=== PATIENT | female | born 1995 | race African-American/Black ===

== ENCOUNTER 2016-10-20 19:16 | Emergency (ER) | payer OTHER ==
[~2016-10-20 19:16] MED LIST: SULF1TAB24 PO
[2016-10-20] MEDS ORDERED: ONDANSETRON ODT 4 MG TAB.RAPDIS PO ONE (20:30)
[2016-10-20] MEDS ORDERED: HYDROCODONE/APAP 5/325MG TABLET. PO ONE (20:30)
[2016-10-20 21:18] LABS: BILIRUBIN,URINE NEGATIVE (NEG); GLUCOSE,URINE NEGATIVE (NEG); NITRITE,URINE NEGATIVE (NEG); PH,URINE 6.5; PROTEIN,URINE NEGATIVE (NEG-TRACE); UROBILINOGEN,URINE 0.2 mg/dL (0.2 mg/dL)
[2016-10-20 21:28] LABS: BACTERIA,URINE FEW /HPF (0-FEW); RBC,URINE 0 /HPF (0-2); SQUAMOUS EPITHELIAL CELL,UR MANY /LPF; WBC,URINE OCC /HPF (0-4)
[2016-10-20 21:33] LABS: BASO # 0.1 x10^3/uL (0.0-0.2); BASO % 1 % (0-3); EOS % 1 % (0-3); HEMATOCRIT 41.5 % (36.0-47.0); HEMOGLOBIN 13.5 g/dL (12.0-15.5); LYMPH # 2.9 x10^3/uL (1.0-4.8); LYMPH % 22 % (24-48); MEAN CORPUSCULAR HEMOGLOBIN 29 pg (25-35); MEAN CORPUSCULAR HGB CONC 33 g/dL (31-37); MEAN CORPUSCULAR VOLUME 90 fL (79-100); MONO % 5 % (0-9); NEUT % 71 % (31-73); PLATELET COUNT 322 x10^3/uL (140-400); RED BLOOD COUNT 4.63 x10^6/uL (3.50-5.40); RED CELL DISTRIBUTION WIDTH 14.3 % (11.5-14.5); WHITE BLOOD COUNT 13.2 x10^3/uL (4.0-11.0)
[2016-10-20 21:56] LABS: ANION GAP 8 (6-14); BLOOD UREA NITROGEN 11 mg/dL (7-20); CALCIUM 9.5 mg/dL (8.5-10.1); CARBON DIOXIDE 28 mmol/L (21-32); CHLORIDE 104 mmol/L (98-107); CREATININE 0.7 mg/dL (0.6-1.0); GFR 127.8; GLUCOSE 90 mg/dL (70-99); POTASSIUM 4.2 mmol/L (3.5-5.1); SODIUM 140 mmol/L (136-145)
[2016-10-20 22:01] LABS: ALBUMIN 3.9 g/dL (3.4-5.0); ALK PHOS 62 U/L (46-116); ALT (SGPT) 22 U/L (14-59); AST (SGOT) 18 U/L (15-37); DIRECT BILIRUBIN < 0.1 mg/dL (0.0-0.2); TOTAL BILIRUBIN 0.2 mg/dL (0.2-1.0); TOTAL PROTEIN 7.5 g/dL (6.4-8.2)
[2016-10-20] MEDS ORDERED: ONDA4TAB10 SL (22:06)
[2016-10-20] MEDS ORDERED: DOXY1TAB3 PO (22:06)
[2016-10-20] MEDS ORDERED: ACET325T9 PO (22:06)
--- NOTE | 2016-10-20 22:06 | PHYS DOC ---
Past Medical History Past Medical History: No Pertinent History Additional Past Medical Histor: "digestive system problems" Past Surgical History: No Surgical History Alcohol Use: None Drug Use: None Adult General Chief Complaint Chief Complaint: NAUSEA/VOMITING/DIARRHA HPI HPI 21-year-old female presenting to the emergency department today with lower abdominal pain nausea and vomiting for the last 3 days. She also has nonproductive cough. She denies having a fever. Her pain is mild intermittent nonradiating and not associated with vaginal bleeding or fever. Review of systems is negative for chest pain fevers chills neck stiffness or confusion. She denies any new rashes. Positive for nausea and vomiting. All other review of systems is negative unless otherwise noted in history of present illness. Review of Systems Review of Systems SEE ABOVE. Current Medications Current Medications Current Medications Medications (Trade) Dose Ordered Sig/Florian Start Time Stop Time Status Last Admin Dose Admin Acetaminophen/ Hydrocodone Bitart (Lortab 5/325) 2 tab 1X ONCE 10/20/16 20:30 10/20/16 20:39 DC 10/20/16 21:30 2 TAB Ondansetron HCl (Zofran Odt) 4 mg 1X ONCE 10/20/16 20:30 10/20/16 20:39 DC 10/20/16 21:29 4 MG Allergies Allergies Allergies Coded Allergies Type Severity Reaction Last Updated Verified No Known Drug Allergies 08/09/16 No Physical Exam Physical Exam Constitutional: Well developed, well nourished, no acute distress, non-toxic appearance. HENT: Normocephalic, atraumatic, bilateral external ears normal, oropharynx moist, no oral exudates, nose normal. [] Eyes: PERRLA, EOMI, conjunctiva normal, no discharge. Neck: Normal range of motion, no tenderness, supple, no stridor. [] Cardiovascular:Heart rate regular rhythm, no murmur Lungs & Thorax: Bilateral breath sounds clear to auscultation [] Abdomen: Soft nontender abdomen without rebound tenderness or guarding present. Negative McBurneys point. Negative Sears sign. No ecchymosis present. Skin: Warm, dry, no erythema, no rash. [] Back: No tenderness, no CVA tenderness. Extremities: No tenderness, no cyanosis, no clubbing, ROM intact, no edema. Neurologic: Alert and oriented X 3, normal motor function, normal sensory function, no focal deficits noted. [] Psychologic: Affect normal, judgement normal, mood normal. [] Current Patient Data Vital Signs Vital Signs Date Time Temp Pulse Resp B/P Pulse Ox O2 Delivery O2 Flow Rate FiO2 10/20/16 22:07 83 20 132/63 97 Room Air 10/20/16 20:05 98.2 98.2 Lab Values Laboratory Tests Test 10/20/16 20:10 10/20/16 20:15 10/20/16 20:30 Urine Collection Type Unknown Urine Color Yellow Urine Clarity Cloudy Urine pH 6.5 Urine Specific [place] 1.025 Urine Protein Negativemg/dL (NEG-TRACE) Urine Glucose (UA) Negativemg/dL (NEG) Urine Ketones (Stick) Tracemg/dL (NEG) Urine Blood Negative (NEG) Urine Nitrite Negative (NEG) Urine Bilirubin Negative (NEG) Urine Urobilinogen Dipstick 0.2mg/dL (0.2 mg/dL) Urine Leukocyte Esterase Negative (NEG) Urine RBC 0/HPF (0-2) Urine WBC Occ/HPF (0-4) Urine Squamous Epithelial Cells Many/LPF Urine Bacteria Few/HPF (0-FEW) Urine Mucus Marked/LPF White Blood Count 13.2x10^3/uL (4.0-11.0) H Red Blood Count 4.63x10^6/uL (3.50-5.40) Hemoglobin 13.5g/dL (12.0-15.5) Hematocrit 41.5% (36.0-47.0) Mean Corpuscular Volume 90fL (79-100) Mean Corpuscular Hemoglobin 29pg (25-35) Mean Corpuscular Hemoglobin Concent 33g/dL (31-37) Red Cell Distribution Width 14.3% (11.5-14.5) Platelet Count 322x10^3/uL (140-400) Neutrophils (%) (Auto) 71% (31-73) Lymphocytes (%) (Auto) 22% (24-48) L Monocytes (%) (Auto) 5% (0-9) Eosinophils (%) (Auto) 1% (0-3) Basophils (%) (Auto) 1% (0-3) Neutrophils # (Auto) 9.4x10^3uL (1.8-7.7) H Lymphocytes # (Auto) 2.9x10^3/uL (1.0-4.8) Monocytes # (Auto) 0.7x10^3/uL (0.0-1.1) Eosinophils # (Auto) 0.2x10^3/uL (0.0-0.7) Basophils # (Auto) 0.1x10^3/uL (0.0-0.2) Sodium Level 140mmol/L (136-145) Potassium Level 4.2mmol/L (3.5-5.1) Chloride Level 104mmol/L (98-107) Carbon Dioxide Level 28mmol/L (21-32) Anion Gap 8 (6-14) Blood Urea Nitrogen 11mg/dL (7-20) Creatinine 0.7mg/dL (0.6-1.0) Estimated GFR (Cockcroft-Gault) 127.8 Glucose Level 90mg/dL (70-99) Calcium Level 9.5mg/dL (8.5-10.1) Total Bilirubin 0.2mg/dL (0.2-1.0) Direct Bilirubin < 0.1mg/dL (0.0-0.2) Aspartate Amino Transferase (AST) 18U/L (15-37) Alanine Aminotransferase (ALT) 22U/L (14-59) Alkaline Phosphatase 62U/L (46-116) Total Protein 7.5g/dL (6.4-8.2) Albumin 3.9g/dL (3.4-5.0) Lipase 150U/L (73-393) POC Urine HCG, Qualitative Hcg positive (Negative) Laboratory Tests 10/20/16 20:15 Laboratory Tests 10/20/16 20:15 EKG EKG [] Radiology/Procedures Radiology/Procedures [] Course & Med Decision Making Course & Med Decision Making Pertinent Labs and Imaging studies reviewed. (See chart for details) [] 21-year-old female presenting to the emergency department today with lower abdominal pain found be on our urine dipstick. Vital signs afebrile. Normal heart rate. Satting well on room air. Physical exam showed a nontender abdomen. Blood work obtained which showed mild leukocytosis. Urinalysis not suggestive of infection. Few bacteria present. Chemistry panel otherwise unremarkable. Ultrasound showed intrauterine . Dragon Disclaimer Dragon Disclaimer This electronic medical record was generated, in whole or in part, using a voice recognition dictation system. Departure Departure Impression: Primary Impression: Abdominal pain affecting Additional Impression: Abdominal pain during Disposition: 01 HOME, SELF-CARE Condition: STABLE Referrals: CLAUDINE SMITH MD (PCP) DEEPTHI HAMPTON Jr, MD Patient Instructions: Abdominal Pain During Additional Instructions: Thank you for allowing us to participate in your care today. Followup with your OB, Dr. Hampton. If you do not have a primary care provider you can ask for a list of our primary care providers. Return to the emergency department you have any new or concerning findings. This should be evaluated by the primary care physician and any necessary consulting services for continued management within a few days after discharge. Return to emergency room if you have any new or concerning symptoms including but not limited to fever, chills, nausea, vomiting, intractable pain, any new rashes, chest pain, shortness of air, uncontrolled bleeding, difficulty breathing, and/or vision loss. Scripts Cephalexin (Keflex)500 Mg Capsule1 Cap PO BID #14 CAP Prov:KAMRAN MCLAIN MD 10/20/16 Doxylamine/Pyridoxine Hcl (Diclegis Dr 10-10 Mg Tablet)1 Each Tablet.dr1 Each PO PRN BID PRN NAUSEA #10 Prov:KAMRAN MCLAIN MD 10/20/16 Ondansetron (Zofran Odt)4 Mg Tab.rapdis1 Tab SL PRN Q8HRS PRN NAUSEA #6 TAB Prov:KAMRAN MCLAIN MD 10/20/16 Acetaminophen (Tylenol)325 Mg [id number] Mg PO PRN Q8HRS PRN PAIN #20 Prov:KAMRAN MCLAIN MD 10/20/16 Problem Qualifiers KAMRAN MCLAIN MD Oct 20, 2016 22:07
--- NOTE | 2016-10-20 22:11 | RAD ---
PROCEDURE First trimester OB ultrasound with endovaginal imaging. HISTORY Nausea, vomiting, diarrhea and dizziness for 1 day. TECHNIQUE Transabdominal imaging was performed for initial evaluation of the pelvis. Endovaginal imaging was performed for optimal characterization of the endometrium and to increase sensitivity for detection of intrauterine . COMPARISON None. FINDINGS Transabdominal imaging: Uterus measures 7.0 centimeters in length. Questionable gestational sac is seen the endometrium. Neither ovary is seen. Endovaginal imaging: Uterus measures 7.5 centimeters in length. Single intrauterine is identified with gestational sac, yolk sac, and embryonic pole seen. Mean crown-rump length is 2.9 millimeters corresponding to 5 weeks 6 days. Estimated date of delivery based on this measurement is June 16, 2017. Embryonic heart motion is 97 beats per minute. Left ovary measures 2.0 x 1.2 x 1.6 centimeters and demonstrates corpus luteum cyst. Right ovary measures 1.9 x 2.4 x 1.1 centimeters and is unremarkable. Both ovaries demonstrate normal vascular flow upon Doppler interrogation and are without evidence of torsion. No adnexal masses are seen. IMPRESSION Single live intrauterine . Average ultrasound age is 5 weeks 6 days. Estimated date of delivery is June 16, 2017. Electronically signed by: Duncan Puga MD (Oct 20, 2016 22:10:34)
[2016-10-20] MEDS ORDERED: CEPH-264 PO (22:48)
[2016-10-20 23:07] VITALS: BP 115/61
== END 2016-10-20 23:30 | disposition home or self-care (01) ==
LOC: ER 19:16
DX: O26.891 Other specified pregnancy related conditions, first trimester (principal); R10.30 Lower abdominal pain, unspecified; Z3A.00 Weeks of gestation of pregnancy not specified
CPT/HCPCS: 36415; 76801; 76817; 80048; 80076; 81001; 81025; 83690; 84702; 85027; 86850; 86900; 86901; 99285; Q0162

== ENCOUNTER 2016-10-30 16:20 | Emergency (ER) | payer OTHER ==
[~2016-10-30] VITALS: Ht 154.9 cm; Wt 71.7 kg
[~2016-10-30 16:20] MED LIST changes: +ACET325T9 PO; +CEPH-264 PO; +DOXY1TAB3 PO; +ONDA4TAB10 SL
[2016-10-30] MEDS ORDERED: IV NORMAL SALINE 1000ML BAG 1,000 ML IV SCH (16:40)
[2016-10-30] MEDS ORDERED: ACETAMINOPHEN 500 MG TABLET PO ONE (16:45)
[2016-10-30] MEDS ORDERED: METOCLOPRAMIDE HCL 10 MG/2 ML VIAL. IV ONE (16:45)
[2016-10-30 16:49] LABS: BILIRUBIN,URINE NEGATIVE (NEG); GLUCOSE,URINE NEGATIVE (NEG); NITRITE,URINE NEGATIVE (NEG); PROTEIN,URINE NEGATIVE (NEG-TRACE)
[2016-10-30 16:50] VITALS: BP 131/74
--- NOTE | 2016-10-30 16:50 | PHYS DOC ---
Past Medical History Past Medical History: No Pertinent History Additional Past Medical Histor: "digestive system problems" Past Surgical History: No Surgical History Alcohol Use: None Drug Use: None Adult General Chief Complaint Chief Complaint: ABDOMINAL PAIN IN HPI HPI Patient is a 21 year old female who presents with abdominal pain in the setting of . Patient reports that since midnight she has been having sharp, pressure-like pain in her lower abdomen. No clear inciting event. Pain is worse with walking. She says it is accompanied by nausea and vomiting; last emesis was ~0200. She has not taken anything for symptoms. No vaginal bleeding; she did have some discharge a few days ago. She is ; she states she is 7w2d . Review of Systems Review of Systems Constitutional: Denies fever or chills Eyes: Denies change in visual acuity or eye pain HENT: Denies nasal congestion or sore throat Respiratory: Denies cough or shortness of breath Cardiovascular: Denies chest pain GI: Lower abdominal pain, nausea, vomiting. Denies bloody stools or diarrhea : Vaginal discharge a few days ago. Denies vaginal bleeding. Denies dysuria or hematuria Musculoskeletal: Denies back pain or joint pain Integument: Denies rash or skin lesions Neurologic: Denies headache, focal weakness or sensory changes Current Medications Current Medications Current Medications Medications (Trade) Dose Ordered Sig/Florian Start Time Stop Time Status Last Admin Dose Admin Acetaminophen (Tylenol) 1,000 mg 1X ONCE 10/30/16 16:45 10/30/16 16:46 DC 10/30/16 17:13 1,000 MG Metoclopramide HCl (Reglan) 10 mg 1X ONCE 10/30/16 16:45 10/30/16 16:46 DC 10/30/16 17:13 10 MG Sodium Chloride (Iv Sodium Chloride 0.9% 1000ml Bag) 1,000 ml @ 1,000 mls/hr Q1H 10/30/16 16:40 10/30/16 17:39 DC 10/30/16 17:12 1,000 MLS/HR Allergies Allergies Allergies Coded Allergies Type Severity Reaction Last Updated Verified No Known Drug Allergies 08/09/16 No Physical Exam Physical Exam Constitutional: Well developed, well nourished, no acute distress, non-toxic appearance HENT: Normocephalic, atraumatic, bilateral external ears normal Eyes: EOMI, conjunctiva normal, no discharge Neck: Normal range of motion, no stridor Cardiovascular: Tachycardic, regular rhythm, murmur noted Lungs & Thorax: Bilateral breath sounds clear to auscultation Abdomen: Bowel sounds normal, soft, non-distended, no TTP Pelvic: Scant thick white discharge in vault, no bleeding, no focal CMT or adnexal tenderness Skin: Warm, dry, no erythema, no rash Extremities: No obvious deformity, no edema Neurologic: Alert and oriented X 3, no gross deficits noted Current Patient Data Vital Signs Vital Signs Date Time Temp Pulse Resp B/P Pulse Ox O2 Delivery O2 Flow Rate FiO2 10/30/16 16:50 98.7 103 27 131/74 99 Room Air 98.7 Lab Values Laboratory Tests Test 10/30/16 16:29 10/30/16 16:34 10/30/16 16:46 Urine Collection Type Unknown Urine Color Yellow Urine Clarity Clear Urine pH 7.0 Urine Specific [place] >=1.030 Urine Protein Negativemg/dL (NEG-TRACE) Urine Glucose (UA) Negativemg/dL (NEG) Urine Ketones (Stick) Tracemg/dL (NEG) Urine Blood Trace (NEG) Urine Nitrite Negative (NEG) Urine Bilirubin Negative (NEG) Urine Urobilinogen Dipstick 1.0mg/dL (0.2 mg/dL) Urine Leukocyte Esterase Small (NEG) Urine RBC 3-5/HPF (0-2) Urine WBC 5-10/HPF (0-4) Urine Squamous Epithelial Cells Many/LPF Urine Bacteria Few/HPF (0-FEW) Urine Mucus Marked/LPF POC Urine HCG, Qualitative Hcg positive (Negative) White Blood Count 10.8x10^3/uL (4.0-11.0) Red Blood Count 4.61x10^6/uL (3.50-5.40) Hemoglobin 13.5g/dL (12.0-15.5) Hematocrit 41.0% (36.0-47.0) Mean Corpuscular Volume 89fL (79-100) Mean Corpuscular Hemoglobin 29pg (25-35) Mean Corpuscular Hemoglobin Concent 33g/dL (31-37) Red Cell Distribution Width 14.3% (11.5-14.5) Platelet Count 239x10^3/uL (140-400) Neutrophils (%) (Auto) 71% (31-73) Lymphocytes (%) (Auto) 22% (24-48) L Monocytes (%) (Auto) 6% (0-9) Eosinophils (%) (Auto) 1% (0-3) Basophils (%) (Auto) 1% (0-3) Neutrophils # (Auto) 7.6x10^3uL (1.8-7.7) Lymphocytes # (Auto) 2.3x10^3/uL (1.0-4.8) Monocytes # (Auto) 0.7x10^3/uL (0.0-1.1) Eosinophils # (Auto) 0.1x10^3/uL (0.0-0.7) Basophils # (Auto) 0.1x10^3/uL (0.0-0.2) Maternal Serum HCG Beta Subunit 111752aCO/mL (0-6) H Sodium Level 140mmol/L (136-145) Potassium Level 4.3mmol/L (3.5-5.1) Chloride Level 103mmol/L (98-107) Carbon Dioxide Level 27mmol/L (21-32) Anion Gap 10 (6-14) Blood Urea Nitrogen 10mg/dL (7-20) Creatinine 0.7mg/dL (0.6-1.0) Estimated GFR (Cockcroft-Gault) 127.8 BUN/Creatinine Ratio 14 (6-20) Glucose Level 88mg/dL (70-99) Calcium Level 9.4mg/dL (8.5-10.1) Total Bilirubin 0.3mg/dL (0.2-1.0) Aspartate Amino Transferase (AST) 15U/L (15-37) Alanine Aminotransferase (ALT) 18U/L (14-59) Alkaline Phosphatase 61U/L (46-116) Total Protein 7.4g/dL (6.4-8.2) Albumin 4.0g/dL (3.4-5.0) Albumin/Globulin Ratio 1.2 (1.0-1.7) Laboratory Tests 10/30/16 16:46 Laboratory Tests 10/30/16 16:46 Microbiology 10/30/16 Wet Prep - Final, Complete EKG EKG [] Radiology/Procedures Radiology/Procedures Pelvic US: IMPRESSION 1. Single live intrauterine at 7 weeks 2 days gestational age by LMP shows appropriate size by ultrasound and appropriate interval growth. 2. No suspicious findings. A short-term followup ultrasound should be performed if clinically indicated otherwise a structural survey would be performed at 18-21 weeks gestational age. Course & Med Decision Making Course & Med Decision Making Pertinent Labs and Imaging studies reviewed. (See chart for details) Patient is 21 year old female who presents with pelvic pain during early . Likely ligamentous pain. Will check pelvic swabs, labs, UA, pelvic US. Acetaminophen, IVF bolus, anti-emetic ordered for symptom relief. Blood work unremarkable. UA notable for bacteriuria. US results as above. Discussed results with patient, who is feeling better at this time. Will plan discharge home with rx for abx to cover asymptomatic bacteriuria, instructions for follow up, return precautions. Dragon Disclaimer Dragon Disclaimer This electronic medical record was generated, in whole or in part, using a voice recognition dictation system. Departure Departure Impression: Primary Impression: Abdominal pain during Additional Impression: Bacteriuria during Disposition: HOME, SELF-CARE Condition: IMPROVED Referrals: CLAUDINE SMITH MD (PCP) Patient Instructions: Abdominal Pain During Additional Instructions: Thank you for allowing us to provide care today in the Emergency Department. Take the provided medication as directed. Also continue to take your vitamins. Follow up with your ObGyn as soon as possible. Return promptly to the Emergency Department if you develop any new or concerning symptoms. Scripts Nitrofurantoin Monohyd/M-Cryst (Macrobid 100 Mg Capsule)100 Mg Capsule1 Cap PO BID #10 CAP Prov:TREY DAILEY MD 10/30/16 Problem Qualifiers TREY DAILEY MD Oct 30, 2016 16:50
[2016-10-30 16:54] LABS: BACTERIA,URINE FEW /HPF (0-FEW); SQUAMOUS EPITHELIAL CELL,UR MANY /LPF
[2016-10-30 16:57] LABS: BASO # 0.1 x10^3/uL (0.0-0.2); BASO % 1 % (0-3); EOS % 1 % (0-3); HEMOGLOBIN 13.5 g/dL (12.0-15.5); LYMPH # 2.3 x10^3/uL (1.0-4.8); LYMPH % 22 % (24-48); MEAN CORPUSCULAR HEMOGLOBIN 29 pg (25-35); MEAN CORPUSCULAR HGB CONC 33 g/dL (31-37); MEAN CORPUSCULAR VOLUME 89 fL (79-100); MONO % 6 % (0-9); NEUT % 71 % (31-73); PLATELET COUNT 239 x10^3/uL (140-400); RED BLOOD COUNT 4.61 x10^6/uL (3.50-5.40); RED CELL DISTRIBUTION WIDTH 14.3 % (11.5-14.5); WHITE BLOOD COUNT 10.8 x10^3/uL (4.0-11.0)
[2016-10-30 17:16] LABS: CALCIUM 9.4 mg/dL (8.5-10.1); CREATININE 0.7 mg/dL (0.6-1.0); GFR 127.8; POTASSIUM 4.3 mmol/L (3.5-5.1)
[2016-10-30 17:19] LABS: ALBUMIN/GLOBULIN RATIO 1.2 (1.0-1.7); TOTAL BILIRUBIN 0.3 mg/dL (0.2-1.0); TOTAL PROTEIN 7.4 g/dL (6.4-8.2)
--- NOTE | 2016-10-30 18:26 | RAD ---
PROCEDURE Ob ultrasound less than 14 weeks HISTORY and pelvic pain The LMP of 09/09/2016 corresponds with a 7 week 2 day gestational age and estimated date of confinement 06/16/2017 TECHNIQUE Sonographic examination of the was performed by transabdominal technique and multiple static images were obtained. COMPARISON October 20, 2016 FINDINGS There is a single live intrauterine . The heart beat is confirmed at 135 beats per minute. The maternal cervix appears normal measures 3.3 centimeters in length. The ovaries appear normal with normal blood flow. The crown-rump length of 1.1 centimeters corresponds with a 7 week 2 day gestational age. IMPRESSION 1. Single live intrauterine at 7 weeks 2 days gestational age by LMP shows appropriate size by ultrasound and appropriate interval growth. 2. No suspicious findings. A short-term followup ultrasound should be performed if clinically indicated otherwise a structural survey would be performed at 18-21 weeks gestational age. Electronically signed by: Evgeny Mancilla MD (Oct 30, 2016 18:24:52)
[2016-10-30] MEDS ORDERED: NITR100C62 PO (18:37)
== END 2016-10-30 18:40 | disposition home or self-care (01) ==
LOC: ER 16:20
DX: O23.41 Unspecified infection of urinary tract in pregnancy, first trimester (principal); O21.0 Mild hyperemesis gravidarum; Z3A.01 Less than 8 weeks gestation of pregnancy
CPT/HCPCS: 36415; 76801; 80053; 81001; 81025; 84702; 85027; 87086; 87491; 87591; 96361; 96374; 99285; J2765; J7030; Q0111

== ENCOUNTER 2016-11-05 15:43 | Emergency (ER) | payer OTHER ==
[~2016-11-05] VITALS: Ht 154.9 cm; Wt 63.5 kg
[~2016-11-05 15:43] MED LIST changes: +NITR100C62 PO
[2016-11-05 16:49] LABS: BILIRUBIN,URINE NEGATIVE (NEG); GLUCOSE,URINE NEGATIVE (NEG); NITRITE,URINE NEGATIVE (NEG); PROTEIN,URINE NEGATIVE (NEG-TRACE); UROBILINOGEN,URINE 0.2 mg/dL (0.2 mg/dL)
--- NOTE | 2016-11-05 16:50 | PHYS DOC ---
Past Medical History Past Medical History: Constipation Additional Past Medical Histor: "digestive system problems" Past Surgical History: No Surgical History Alcohol Use: None Drug Use: None Adult General Chief Complaint Chief Complaint: VOMITING IN [facility] HPI Patient is a 21 year old female presents with six episodes of vomiting today since she ran out of Zofran. reports she was seen here recently and diagnosed with a UTI and given two medications for vomiting and Zofran is the only one that works. Reports 8 weeks with LMP 09/09/15, A0. First OB appointment is Thursday. Denies fever, urinary symptoms, Back pain, vaginal bleeding or leaking of fluid. Review of Systems Review of Systems Constitutional: Denies fever or chills Eyes: Denies change in visual acuity, redness, or eye pain HENT: Denies nasal congestion or sore throat Respiratory: Denies cough or shortness of breath Cardiovascular: No additional information not addressed in HPI GI: Nausea and vomiting : Denies dysuria or hematuria Musculoskeletal: Denies back pain or joint pain Integument: Denies rash or skin lesions Neurologic: Denies headache, focal weakness or sensory changes Endocrine: Denies polyuria or polydipsia Allergies Allergies Allergies Coded Allergies Type Severity Reaction Last Updated Verified No Known Drug Allergies 08/09/16 No Physical Exam Physical Exam Constitutional: Well developed, well nourished, no acute distress, non-toxic appearance. HENT: Normocephalic, atraumatic, bilateral external ears normal, oropharynx moist, no oral exudates, nose normal. Eyes: PERRLA, EOMI, conjunctiva normal, no discharge. Neck: Normal range of motion, no tenderness, supple, no stridor. Cardiovascular:Heart rate regular rhythm, no murmur Lungs & Thorax: Bilateral breath sounds clear to auscultation Abdomen: Bowel sounds normal, soft, no tenderness, no masses, no pulsatile masses. Skin: Warm, dry, no erythema, no rash. Back: No tenderness, no CVA tenderness. Extremities: No tenderness, no cyanosis, no clubbing, ROM intact, no edema. Neurologic: Alert and oriented X 3, normal motor function, normal sensory function, no focal deficits noted. Psychologic: Affect normal, judgement normal, mood normal. Current Patient Data Vital Signs Vital Signs Date Time Temp Pulse Resp B/P Pulse Ox O2 Delivery O2 Flow Rate FiO2 11/05/16 17:20 79 16 112/58 99 Room Air 11/05/16 15:50 99.0 99.0 Lab Values Laboratory Tests Test 11/05/16 16:10 Urine Collection Type Unknown Urine Color Yellow Urine Clarity Clear Urine pH 7.0 Urine Specific [place] <=1.005 Urine Protein Negativemg/dL (NEG-TRACE) Urine Glucose (UA) Negativemg/dL (NEG) Urine Ketones (Stick) Negativemg/dL (NEG) Urine Blood Trace (NEG) Urine Nitrite Negative (NEG) Urine Bilirubin Negative (NEG) Urine Urobilinogen Dipstick 0.2mg/dL (0.2 mg/dL) Urine Leukocyte Esterase Negative (NEG) Urine RBC 3-5/HPF (0-2) Urine WBC Occ/HPF (0-4) Urine Squamous Epithelial Cells Mod/LPF Urine Bacteria 0/HPF (0-FEW) Urine Mucus Slight/LPF EKG EKG [] Radiology/Procedures Radiology/Procedures [] Impressions: Vomiting in Course & Med Decision Making Course & Med Decision Making Pertinent Labs and Imaging studies reviewed. (See chart for details) [] Dragon Disclaimer Dragon Disclaimer This electronic medical record was generated, in whole or in part, using a voice recognition dictation system. Departure Departure Impression: Primary Impression: Vomiting during Disposition: 01 HOME, SELF-CARE Condition: STABLE Referrals: CLAUDINE SMITH MD (PCP) Patient Instructions: Nausea and Vomiting, [id number] Additional Instructions: Finish the antibiotic as prescribed. Keep your appointment with your OB doctor for Thursday. Take all medications as prescribed. Return if problems or concerns. Scripts Ondansetron (Zofran Odt)4 Mg Tab.rapdis1 Tab SL Q8HRS #10 TAB Prov:SOBIA WALTON APRN 11/05/16 SOBIA WALTON APRN Nov 05, 2016 16:50
[2016-11-05 17:07] LABS: BACTERIA,URINE 0 /HPF (0-FEW); SQUAMOUS EPITHELIAL CELL,UR MOD /LPF; WBC,URINE OCC /HPF (0-4)
[2016-11-05] MEDS ORDERED: ONDA4TAB10 SL (17:12)
[2016-11-05 17:20] VITALS: BP 112/58
== END 2016-11-05 17:20 | disposition home or self-care (01) ==
LOC: ER 15:43
DX: O21.9 Vomiting of pregnancy, unspecified (principal); Z3A.08 8 weeks gestation of pregnancy; Z87.440 Personal history of urinary (tract) infections
CPT/HCPCS: 81001; 99283

== ENCOUNTER → 2016-12-02 | Outpatient (CLI) | payer OTHER ==
[2016-11-05 17:20] VITALS: BP 112/58
[2016-12-02 13:54] LABS: BASO % 0 % (0-3); EOS % 1 % (0-3); HEMATOCRIT 41.8 % (36.0-47.0); HEMOGLOBIN 13.7 g/dL (12.0-15.5); LYMPH % 20 % (24-48); MEAN CORPUSCULAR HEMOGLOBIN 29 pg (25-35); MEAN CORPUSCULAR HGB CONC 33 g/dL (31-37); MEAN CORPUSCULAR VOLUME 88 fL (79-100); MONO % 5 % (0-9); NEUT % 73 % (31-73); PLATELET COUNT 250 x10^3/uL (140-400); RED BLOOD COUNT 4.73 x10^6/uL (3.50-5.40); WHITE BLOOD COUNT 9.6 x10^3/uL (4.0-11.0)
[2016-12-02 15:59] LABS: SICKLE CELL SCREEN NEGATIVE
== END | disposition home or self-care (01) ==
LOC: LAB 13:34
PROVIDERS: ATTEND Obstetrics & Gynecology
DX: Z32.01 Encounter for pregnancy test, result positive (principal)
CPT/HCPCS: 36415; 85027; 85660; 86593; 86703; 86762; 86850; 86900; 86901; 87340; 87341

== ENCOUNTER 2016-12-04 17:46 | Emergency (ER) | payer OTHER ==
[2016-12-04 17:55] VITALS: BP 125/64
--- NOTE | 2016-12-04 19:05 | PHYS DOC ---
Past Medical History Past Medical History: Constipation Additional Past Medical Histor: "digestive system problems" Past Surgical History: No Surgical History Alcohol Use: None Drug Use: None Adult General Chief Complaint Chief Complaint: VAGINAL BLEEDING HPI HPI Patient is a 21 year old female who presents with vaginal bleeding during . Patient is 12 weeks 2 days . 1, Para 0. Patient states she passed a small blood clot around 4 PM today. Patient denies any abdominal pain or abdominal/uterine cramping. Unknown blood type. No pain with urination, urinary frequency or constipation. No prior abdominal surgeries or abdominal trauma. Review of Systems Review of Systems Constitutional: Denies fever or chills Eyes: Denies change in visual acuity, redness, or eye pain HENT: Denies nasal congestion or sore throat Respiratory: Denies cough or shortness of breath Cardiovascular: No chest pain or palpitations GI: Denies abdominal pain, nausea, vomiting, bloody stools or diarrhea : Denies dysuria or hematuria Musculoskeletal: Denies back pain or joint pain Integument: Denies rash or skin lesions Neurologic: Denies headache, focal weakness or sensory changes Endocrine: Denies polyuria or polydipsia Allergies Allergies Allergies Coded Allergies Type Severity Reaction Last Updated Verified No Known Drug Allergies 08/09/16 No Physical Exam Physical Exam Constitutional: Well developed, well nourished, no acute distress, non-toxic appearance. HENT: Normocephalic, atraumatic, oropharynx moist, no oral exudates. Eyes: PERRLA, EOMI, conjunctiva normal, no discharge. Neck: Normal range of motion, no tenderness, supple, no stridor. Cardiovascular:Heart rate regular rhythm, no murmur Lungs & Thorax: Bilateral breath sounds clear to auscultation Abdomen: Bowel sounds normal, soft, no tenderness, no masses, no pulsatile masses. Skin: Warm, dry, no erythema, no rash. Back: No tenderness, no CVA tenderness. Extremities: No tenderness, no cyanosis, no edema. Neurologic: Alert and oriented X 3, normal motor function, normal sensory function, no focal deficits noted. Psychologic: Affect normal, judgement normal, mood normal. Current Patient Data Vital Signs Vital Signs Date Time Temp Pulse Resp B/P Pulse Ox O2 Delivery O2 Flow Rate FiO2 12/04/16 17:55 99.5 69 14 125/64 100 Room Air 99.5 EKG EKG [] Radiology/Procedures Radiology/Procedures [] Course & Med Decision Making Course & Med Decision Making Pertinent Labs and Imaging studies reviewed. (See chart for details) I discussed treatment plan with patient including pelvic exam and quantitative hCG with repeat hCG in 3 days. Once patient understood and would be no emergent ultrasound of this she signed out AMA. Aide Disclaimer Dragon Disclaimer This electronic medical record was generated, in whole or in part, using a voice recognition dictation system. Departure Departure Impression: Primary Impression: Threatened miscarriage Disposition: 07 AGAINST MEDICAL ADVICE Condition: STABLE Referrals: NO PCP (PCP) FAUSTINO VILCHIS MD Dec 04, 2016 19:05
== END 2016-12-04 19:33 | disposition left against medical advice (07) ==
LOC: ER 17:46
DX: O20.0 Threatened abortion (principal); Z3A.12 12 weeks gestation of pregnancy
CPT/HCPCS: 36415; 99281

== ENCOUNTER 2016-12-09 20:37 | Inpatient (IN) | payer OTHER ==
[~2016-12-09] VITALS: Ht 154.9 cm; Wt 70.8 kg
[2016-12-09 21:38] LABS: BASO # 0.1 x10^3/uL (0.0-0.2); BASO % 0 % (0-3); EOS % 1 % (0-3); HEMATOCRIT 39.5 % (36.0-47.0); HEMOGLOBIN 12.9 g/dL (12.0-15.5); LYMPH # 1.9 x10^3/uL (1.0-4.8); LYMPH % 16 % (24-48); MEAN CORPUSCULAR HEMOGLOBIN 29 pg (25-35); MEAN CORPUSCULAR HGB CONC 33 g/dL (31-37); MEAN CORPUSCULAR VOLUME 89 fL (79-100); MONO % 4 % (0-9); NEUT % 78 % (31-73); PLATELET COUNT 217 x10^3/uL (140-400); RED BLOOD COUNT 4.44 x10^6/uL (3.50-5.40); WHITE BLOOD COUNT 12.4 x10^3/uL (4.0-11.0)
--- NOTE | 2016-12-09 21:44 | PHYS DOC ---
Past Medical History Past Medical History: Constipation Additional Past Medical Histor: "digestive system problems" Past Surgical History: No Surgical History Alcohol Use: None Drug Use: None Adult General Chief Complaint Chief Complaint: VAGINAL BLEEDING HPI HPI This is an otherwise healthy 29-year-old female who's actively miscarrying and she was told last week at [facility] that she was having an inevitable miscarriage. She now states she is passing large clots or as before she was spotting. She is also having significant lower abdominal cramping that is new today. She denies any fever or chills. This is her first . She has not yet seen an OB doctor and she states she's had difficulty getting a appointment. She does not appear to be in any acute distress upon my initial evaluation. She denies any dizziness or lightheadedness. Review of Systems Review of Systems Constitutional: Denies fever or chills [] Eyes: Denies change in visual acuity, redness, or eye pain [] HENT: Denies nasal congestion or sore throat [] Respiratory: Denies cough or shortness of breath [] Cardiovascular: No additional information not addressed in HPI [] GI: Denies abdominal pain, nausea, vomiting, bloody stools or diarrhea [] : Denies dysuria or hematuria [] Musculoskeletal: Denies back pain or joint pain [] Integument: Denies rash or skin lesions [] Neurologic: Denies headache, focal weakness or sensory changes [] Endocrine: Denies polyuria or polydipsia [] Current Medications Current Medications Current Medications Medications (Trade) Dose Ordered Sig/Florian Start Time Stop Time Status Last Admin Dose Admin Fentanyl Citrate (Fentanyl 2ml Vial) 50 mcg PRN Q2HR PRN 12/09/16 23:00 12/10/16 22:59 Ondansetron HCl (Zofran) 4 mg PRN Q8HRS PRN 12/09/16 23:00 12/10/16 22:59 Sodium Chloride (Iv Sodium Chloride 0.9% 1000ml Bag) 1,000 ml @ 1,000 mls/hr 1X ONCE 12/09/16 22:00 12/09/16 23:02 DC 12/09/16 22:26 1,000 MLS/HR Allergies Allergies Allergies Coded Allergies Type Severity Reaction Last Updated Verified No Known Drug Allergies 08/09/16 No Physical Exam Physical Exam Constitutional: Well developed, well nourished, no acute distress, non-toxic appearance. [] HENT: Normocephalic, atraumatic, bilateral external ears normal, oropharynx moist, no oral exudates, nose normal. [] Eyes: PERRLA, EOMI, conjunctiva normal, no discharge. [] Neck: Normal range of motion, no tenderness, supple, no stridor. [] Cardiovascular:Heart rate regular rhythm, no murmur [] Lungs & Thorax: Bilateral breath sounds clear to auscultation [] Abdomen: Bowel sounds normal, soft, no tenderness, no masses, no pulsatile masses. [] Skin: Warm, dry, no erythema, no rash. [] Back: No tenderness, no CVA tenderness. [] Extremities: No tenderness, no cyanosis, no clubbing, ROM intact, no edema. [] Neurologic: Alert and oriented X 3, normal motor function, normal sensory function, no focal deficits noted. [] Psychologic: Affect normal, judgement normal, mood normal. [] Current Patient Data Vital Signs Vital Signs Date Time Temp Pulse Resp B/P Pulse Ox O2 Delivery O2 Flow Rate FiO2 12/09/16 23:02 16 125/74 100 Room Air 12/09/16 22:34 71 12/09/16 20:40 99 99.0 Lab Values Laboratory Tests Test 12/09/16 21:30 White Blood Count 12.4x10^3/uL (4.0-11.0) H Red Blood Count 4.44x10^6/uL (3.50-5.40) Hemoglobin 12.9g/dL (12.0-15.5) Hematocrit 39.5% (36.0-47.0) Mean Corpuscular Volume 89fL (79-100) Mean Corpuscular Hemoglobin 29pg (25-35) Mean Corpuscular Hemoglobin Concent 33g/dL (31-37) Red Cell Distribution Width 14.0% (11.5-14.5) Platelet Count 217x10^3/uL (140-400) Neutrophils (%) (Auto) 78% (31-73) H Lymphocytes (%) (Auto) 16% (24-48) L Monocytes (%) (Auto) 4% (0-9) Eosinophils (%) (Auto) 1% (0-3) Basophils (%) (Auto) 0% (0-3) Neutrophils # (Auto) 9.7x10^3uL (1.8-7.7) H Lymphocytes # (Auto) 1.9x10^3/uL (1.0-4.8) Monocytes # (Auto) 0.5x10^3/uL (0.0-1.1) Eosinophils # (Auto) 0.1x10^3/uL (0.0-0.7) Basophils # (Auto) 0.1x10^3/uL (0.0-0.2) Maternal Serum HCG Beta Subunit 573mIU/mL (0-6) H Sodium Level 142mmol/L (136-145) Potassium Level 3.8mmol/L (3.5-5.1) Chloride Level 105mmol/L (98-107) Carbon Dioxide Level 28mmol/L (21-32) Anion Gap 9 (6-14) Blood Urea Nitrogen 14mg/dL (7-20) Creatinine 0.7mg/dL (0.6-1.0) Estimated GFR (Cockcroft-Gault) 127.8 BUN/Creatinine Ratio 20 (6-20) Glucose Level 85mg/dL (70-99) Calcium Level 9.5mg/dL (8.5-10.1) Total Bilirubin 0.2mg/dL (0.2-1.0) Aspartate Amino Transferase (AST) 14U/L (15-37) L Alanine Aminotransferase (ALT) 18U/L (14-59) Alkaline Phosphatase 62U/L (46-116) Total Protein 7.5g/dL (6.4-8.2) Albumin 3.7g/dL (3.4-5.0) Albumin/Globulin Ratio 1.0 (1.0-1.7) Laboratory Tests 12/09/16 21:30 Laboratory Tests 12/09/16 21:30 EKG EKG [] Radiology/Procedures Radiology/Procedures PROCEDURE Transvaginal Ob ultrasound less than 14 weeks 12/09/2016 HISTORY First trimester . The patient started having a miscarriage last week. Sudden onset of heavy vaginal bleeding 1 hour ago. TECHNIQUE A transvaginal ultrasound study was performed. Multiple images were obtained. FINDINGS The uterus is mildly enlarged measuring 11.0 x 5.2 x 4.2 centimeters in longitudinal, transverse, and AP dimensions. No gestational sac is seen within the endometrial canal of the uterus. The endometrial echo complex measures 1.7 centimeters in thickness which is within normal limits. It is heterogeneous. No focal abnormality of the uterus is seen. Both ovaries are within normal limits in size and echogenicity. The right ovary measures 1.8 x 1.0 x 1.3 centimeters in size. The left ovary measures 2.6 x 1.3 x 1.2 centimeters in size. No adnexal mass is seen. No free fluid is noted. IMPRESSION No IUP is seen. These findings likely reflect a missed spontaneous given the patient's history. Course & Med Decision Making Course & Med Decision Making Pertinent Labs and Imaging studies reviewed. (See chart for details) This 21-year-old female who is having ongoing vaginal bleeding has an ultrasound that is concerning for missed . She has extensive blood in the endocervical canal and has required multiple doses of pain control in the department. Her laboratory workup was unrevealing. She is O+ and her hemoglobin is stable at 12.9. Her vital signs were within normal limits. I consulted the on -call video control operator, Dr. Lala, who agreed to accept the patient for further evaluation and likely D&C in the morning. The patient will be kept NPO until that time with continued IV fluids and pain medication as needed. Dragon Disclaimer Dragon Disclaimer This electronic medical record was generated, in whole or in part, using a voice recognition dictation system. Departure Departure Impression: Primary Impression: Missed Additional Impression: Vaginal bleeding Disposition: ADMITTED INPATIENT Admitting Physician: Other Condition: STABLE Referrals: NO PCP (PCP) Problem Qualifiers ROLANDO GOLDSMITH DO Dec 09, 2016 21:44
[2016-12-09 21:51] LABS: CALCIUM 9.5 mg/dL (8.5-10.1); CREATININE 0.7 mg/dL (0.6-1.0); GFR 127.8; POTASSIUM 3.8 mmol/L (3.5-5.1)
[2016-12-09 21:57] LABS: ALBUMIN 3.7 g/dL (3.4-5.0); TOTAL BILIRUBIN 0.2 mg/dL (0.2-1.0); TOTAL PROTEIN 7.5 g/dL (6.4-8.2)
[2016-12-09] MEDS ORDERED: FENTANYL PF 100 MCG/2 ML VIAL. IV ONE (22:00)
[2016-12-09] MEDS ORDERED: IV NORMAL SALINE 1000ML BAG 1,000 ML IV ONE (22:00)
--- NOTE | 2016-12-09 22:42 | RAD ---
PROCEDURE Transvaginal Ob ultrasound less than 14 weeks 12/09/2016 HISTORY First trimester . The patient started having a miscarriage last week. Sudden onset of heavy vaginal bleeding 1 hour ago. TECHNIQUE A transvaginal ultrasound study was performed. Multiple images were obtained. FINDINGS The uterus is mildly enlarged measuring 11.0 x 5.2 x 4.2 centimeters in longitudinal, transverse, and AP dimensions. No gestational sac is seen within the endometrial canal of the uterus. The endometrial echo complex measures 1.7 centimeters in thickness which is within normal limits. It is heterogeneous. No focal abnormality of the uterus is seen. Both ovaries are within normal limits in size and echogenicity. The right ovary measures 1.8 x 1.0 x 1.3 centimeters in size. The left ovary measures 2.6 x 1.3 x 1.2 centimeters in size. No adnexal mass is seen. No free fluid is noted. IMPRESSION No IUP is seen. These findings likely reflect a missed spontaneous given the patient's history. Electronically signed by: Luis Negro MD (Dec 09, 2016 22:41:09)
[2016-12-09] MEDS ORDERED: FENTANYL PF 100 MCG/2 ML VIAL. IV PRN (23:00)
[2016-12-09] MEDS ORDERED: ONDANSETRON PF 4 MG/2 ML VIAL. IV PRN (23:00)
[2016-12-09] MEDS ORDERED: IV NORMAL SALINE 1000ML BAG 1,000 ML IV SCH (23:30)
--- NOTE | 2016-12-09 23:34 | ACF ---
Admission Forms Criteria OBSTETRIC AND GYNECOLOGIC DISEASE [facility] Clinical Indications for Admission to Inpatient Care (Place 'X' for any and all applicable criteria): Hospital admission is needed for appropriate care of the patient because of 1 or more of the following (1)(2)(3): [ ]I. Hemodynamic instability, as indicated by 1 or more of the following (1)( 2)(3)(4)(5): [ ]a) Vital signs or other findings not as expected for chronic patient condition or baseline [ ]b) Instability indicated by 1 or more of the following: [ ]i) Hypotension [ ]ii) Symptomatic tachycardia unresponsive to treatment (eg, analgesia, fluids, sedation as indicated) [ ]iii) Inadequate perfusion indicated by 1 or more of the following: [ ]A. Lactic acidosis (greater than 2 mmol/ L) [ ]B. New abnormal capillary refill ( greater than 3 seconds) [ ]C. Reduced urine output [ ]D. New altered mental status [ ]iv) Orthostatic vital sign changes unresponsive to treatment (eg, fluids) [ ]v) Multiple IV fluid boluses required to maintain adequate blood pressure or perfusion [ ]vi) IV inotropic or vasopressor medication required to maintain adequate blood pressure or perfusion [ ]II. Obstetric infection requiring hospitalization indicated by 1 or more of the following(13)(14): [ ]a) Chorioamnionitis [ ]b) Endometritis (except mild endometritis) [ ]c) Pelvic abscess [ ]d) Peritonitis [ ]e) Septic pelvic thrombophlebitis [ ]III. Amniotic fluid or pulmonary embolism(4)(5)(6) [ ]IV. Suspected peritonitis or ectopic requiring monitoring beyond scope of 24 hours or observation care(7)(8) [ ]V. compromise requiring hospitalization indicated by ALL of the following(9)(10): [ ]a) compromise indicated by 1 or more of the following(11): [ ]i) Abnormal heart rate monitoring [ ]ii) Abnormal contraction stress test [ ]iii) Abnormal biophysical profile [ ]iv) Abnormal Doppler flow in vessels (ie, Doppler velocimetry) (12) [ ]b) Persistence of compromise indicators during evaluation and observation monitoring [ ]. Ovarian hyperstimulation syndrome requiring hospitalization[A] indicated by ALL of the following(15): [ ]a) Recent ovarian stimulation with gonadotropins, or evidence on ultrasound of spontaneous emergence of large number of ovarian follicles [ ]b) Evidence of severe ovarian hyperstimulation syndrome indicated by 1 or more of the following: [ ]i) Abdominal pain unresponsive to oral therapy [ ]ii) Acute respiratory distress syndrome [ ]iii) Electrolyte imbalance ( eg, hyponatremia, hyperkalemia) [ ]iv) Elevated liver enzymes [ ]v) Evidence of thromboembolism [ ]vi) Hemoconcentration (hematocrit greater than 45 % (0.45)) [ ]vii) Inability to maintain oral intake adequate to prevent hemoconcentration [ ]viii) Marked hypotension from baseline (eg, SBP 20 mmHg below patients usual pressure) [ ]ix) Oliguria or anuria [ ]x) Ovarian torsion [ ]xi) Pleural or pericardial effusion on x-ray or echocardiogram [ ]xii) Rapid increase in serum creatinine to greater than 1.2 mg/dL (106 micromoles/L) or creatinine clearance less than 50 mL/min/1.73m2 (0.84 mL/ sec/1.73m2) [ ]xiii) Ruptured ovarian cyst with hemorrhage [ ]xiv) Severe abdominal pain or peritoneal signs [ ]xv) Tense ascites that cannot be managed with paracentesis in outpatient setting [ ]VII.Pelvic infection requiring hospitalization indicated by 1 or more of the following (16): [ ]a) Outpatient treatment has failed or is not appropriate (eg, inpatient monitoring required) [ ]b) Pelvic abscess [ ]c) Surgical emergency cannot be excluded (eg, rigid abdomen) [ ]d) Vomiting precluding outpatient and observation care management VIII. loss complications requiring inpatient medical treatment indicated by 1 or more of the following (4)(7)(9): [ ]a) Fever [ ]b) Peritonitis [ ]c) Sepsis [ ]d) Severe abdominal pain [ ]IX. or patient requiring monitoring for severe heart failure, pulmonary disease, or other comorbid condition (eg, peripartum cardiomyopathy) (4)(17) [ ]X. patient with rupture of membranes requiring hospitalization indicated by ANY ONE of the following: [ ]a) Chorioamnionitis, cloudy amniotic fluid, or other evidence of infection [ ]b) compromise or other need for monitoring (11) [ ]c) Gestation longer than 23 weeks and ANY ONE of the following: [ ]i) Abnormal (noncephalic) presentation [ ]ii) Inadequate home environment (eg, home too far from hospital, unable to rapidly return to hospital) [ ]d) Temperature greater than 100.4 degrees F (38 degrees C)( oral) [ ]e) Threatened labor requiring monitoring beyond scope (eg, over 24 hours) of observation Care [ ] XI. complications, including severe lacerations, infections, or retained placenta (19) [ ] XII.Uterine bleeding with high-risk features indicated by ANY ONE of the following (4): [ ]a) Active major hemorrhage (eg, hemorrhage) [ ]b) Coagulopathy with active bleeding [ ]c) Gestational trophoblastic disease (eg, molar ) (20 ) [ ]d) (longer than 23 weeks) and ANY ONE of the following: [ ]i) Pain [ ]ii) Placental abruption, known or suspected [ ]iii) Placenta accrete, known or suspected(21) [ ]iv) Placenta previa, known or suspected [ ]v) Vasa previa [ ]e) Severe anemia [X]XIII. Obstetric or Gynecologic Disease, condition or symptom for which ANY ONE of the following: [X]a) Emergency and observation care have failed or are not considered appropriate ( Also use General Criteria: Observation Care Criteria as appropriate) [ ]b) Presence of a General Admission Criteria or Pediatric General Admission Criteria The original [facility] [employer] content created by [facility] has been revised. The portions of the content which have been revised are identified through the use of italic text or in bold, and [facility] has neither reviewed nor approved the modified material.All other unmodified content is copyright [facility]. Please see references footnoted in the original [facility] edition 2016 Admission Criteria Met?: Yes RUSS AMADOR Dec 09, 2016 23:34
[2016-12-10] VITALS (10 sets, daily range): BP systolic 100–138; BP diastolic 56–72
[2016-12-10] MEDS ORDERED: IBUPROFEN 800 MG TABLET. PO PRN (00:30)
[2016-12-10] MEDS ORDERED: OXYCODONE/APAP 5/325 TABLET. PO PRN ×2 (00:30→13:15)
[2016-12-10] MEDS: OXYCODONE/APAP 5/325 TABLET. PO PRN ×2 (01:12→15:51)
[2016-12-10 07:02] LABS: BASO % 0 % (0-3); EOS % 1 % (0-3); HEMATOCRIT 39.5 % (36.0-47.0); HEMOGLOBIN 12.7 g/dL (12.0-15.5); LYMPH # 2.7 x10^3/uL (1.0-4.8); LYMPH % 27 % (24-48); MEAN CORPUSCULAR HEMOGLOBIN 29 pg (25-35); MEAN CORPUSCULAR HGB CONC 32 g/dL (31-37); MEAN CORPUSCULAR VOLUME 90 fL (79-100); MONO % 5 % (0-9); NEUT % 66 % (31-73); PLATELET COUNT 214 x10^3/uL (140-400); RED CELL DISTRIBUTION WIDTH 14.3 % (11.5-14.5); WHITE BLOOD COUNT 10.1 x10^3/uL (4.0-11.0)
[2016-12-10 07:16] LABS: CALCIUM 9.1 mg/dL (8.5-10.1); CREATININE 0.7 mg/dL (0.6-1.0); GFR 127.8; POTASSIUM 3.9 mmol/L (3.5-5.1)
[2016-12-10] MEDS ORDERED: MISOPROSTOL 200 MCG TABLET ONE (12:04)
[2016-12-10] MEDS ORDERED: OXYTOCIN 10 UNIT/ML VIAL. ONE ×2 (12:04→13:02)
[2016-12-10] MEDS ORDERED: CEFAZOLIN 2GM PREMIX 50 ML IV ONE (12:09)
--- NOTE | 2016-12-10 12:26 | HP ---
ADMIT DATE: 12/10/2016 CHIEF COMPLAINT AND HISTORY OF PRESENT ILLNESS: This patient is a 21-year-old Citizen Of [place]- female 1, para 0, last menstrual period 09/14/2016 and has been having some bleeding for the last 1 week to 10 days and she has seen in and out of the hospital at least 3 times and at the present time her hCG levels are 520, hemoglobin 13.3, came through the Emergency Room for bleeding and pain and she was seen by ER physician, admitted to the hospital for possible missed and her sonogram reveals enlarged uterus and no adnexal masses as such. PHYSICAL EXAMINATION: VITAL SIGNS: Stable. ABDOMEN: Feels soft, tenderness in the pelvic area. PELVIC: Shows external genitalia being normal. Cervical os is closed. Uterus feels bulky. No adnexal masses are palpable at this time. Bleeding noted. IMPRESSION: Missed , dilation and curettage. PLAN: Dilation and curettage, suction curettage. KATE WADDELL MD DR: JAVIER/gisella JOB#: [id number] / [id number]
[2016-12-10] MEDS ORDERED: FENTANYL PF 100 MCG/2 ML VIAL. ONE (12:41)
[2016-12-10] MEDS ORDERED: IV RINGERS,LACTATED 1000ML 1,000 ML IV ONE (12:45)
[2016-12-10] MEDS ORDERED: LIDOCAINE 2% PF Vial for OR 5 ML VIAL. ONE (13:02)
[2016-12-10] MEDS ORDERED: SEVOFLURANE 31 TO 60 MINUTES. IH ONE (13:02)
[2016-12-10] MEDS ORDERED: ONDANSETRON PF 4 MG/2 ML VIAL. ONE (13:02)
[2016-12-10] MEDS ORDERED: DEXAMETHASONE SOD PHOS 20 MG/5 ML VIAL. ONE (13:02)
[2016-12-10] MEDS ORDERED: PROPOFOL 20 ML IV ONE (13:02)
--- NOTE | 2016-12-10 13:09 | PDOC ---
SUBJECTIVE Subjective with bleeding Pelvic Pain OBJECTIVE Objective 21 yrs old LMP01 Vaginal Bleeding Pelvic Pain [id number] Vital Signs Vital Signs Date Time Temp Pulse Resp B/P Pulse Ox O2 Delivery O2 Flow Rate FiO2 12/10/16 12:39 98.4 69 12 127/73 98 98.4 12/10/16 11:41 98.4 76 20 122/66 98 Room Air 98.4 12/10/16 09:50 98.5 78 20 110/57 99 Room Air 98.5 12/10/16 05:15 98.1 79 18 124/62 99 Room Air 98.1 12/10/16 02:30 18 Room Air 12/10/16 01:12 18 Room Air 12/10/16 00:34 98.3 76 18 128/60 Room Air 98.3 12/09/16 23:02 16 125/74 100 Room Air 12/09/16 22:34 71 17 100/52 99 Room Air 12/09/16 22:26 16 100 Room Air 12/09/16 20:40 99 18 107/65 100 Room Air 99.0 I & O Intake and Output 12/10/16 07:00 Intake Total 0 ml Balance 0 ml Intake Oral 0 ml PHYSICAL EXAM Physical Exam Pelvic exam:Normal EG Mild vaginal bleeding Uterus enlarged and Tender ASSESSMENT/PLAN Assessment/Plan Under GA Dilatation and Suction Curettage done EBL 200 cc Tissues removed from uterus. 20 units of Pitocin given Problems: COMMENT Lab Laboratory Tests Test 12/09/16 21:30 12/10/16 06:00 White Blood Count 12.4x10^3/uL (4.0-11.0) 10.1x10^3/uL (4.0-11.0) Red Blood Count 4.44x10^6/uL (3.50-5.40) 4.40x10^6/uL (3.50-5.40) Hemoglobin 12.9g/dL (12.0-15.5) 12.7g/dL (12.0-15.5) Hematocrit 39.5% (36.0-47.0) 39.5% (36.0-47.0) Mean Corpuscular Volume 89fL (79-100) 90fL (79-100) Mean Corpuscular Hemoglobin 29pg (25-35) 29pg (25-35) Mean Corpuscular Hemoglobin Concent 33g/dL (31-37) 32g/dL (31-37) Red Cell Distribution Width 14.0% (11.5-14.5) 14.3% (11.5-14.5) Platelet Count 217x10^3/uL (140-400) 214x10^3/uL (140-400) Neutrophils (%) (Auto) 78% (31-73) 66% (31-73) Lymphocytes (%) (Auto) 16% (24-48) 27% (24-48) Monocytes (%) (Auto) 4% (0-9) 5% (0-9) Eosinophils (%) (Auto) 1% (0-3) 1% (0-3) Basophils (%) (Auto) 0% (0-3) 0% (0-3) Neutrophils # (Auto) 9.7x10^3uL (1.8-7.7) 6.7x10^3uL (1.8-7.7) Lymphocytes # (Auto) 1.9x10^3/uL (1.0-4.8) 2.7x10^3/uL (1.0-4.8) Monocytes # (Auto) 0.5x10^3/uL (0.0-1.1) 0.5x10^3/uL (0.0-1.1) Eosinophils # (Auto) 0.1x10^3/uL (0.0-0.7) 0.1x10^3/uL (0.0-0.7) Basophils # (Auto) 0.1x10^3/uL (0.0-0.2) 0.0x10^3/uL (0.0-0.2) Maternal Serum HCG Beta Subunit 573mIU/mL (0-6) Sodium Level 142mmol/L (136-145) 143mmol/L (136-145) Potassium Level 3.8mmol/L (3.5-5.1) 3.9mmol/L (3.5-5.1) Chloride Level 105mmol/L (98-107) 108mmol/L (98-107) Carbon Dioxide Level 28mmol/L (21-32) 25mmol/L (21-32) Anion Gap 9 (6-14) 10 (6-14) Blood Urea Nitrogen 14mg/dL (7-20) 12mg/dL (7-20) Creatinine 0.7mg/dL (0.6-1.0) 0.7mg/dL (0.6-1.0) Estimated GFR (Cockcroft-Gault) 127.8 127.8 BUN/Creatinine Ratio 20 (6-20) Glucose Level 85mg/dL (70-99) 67mg/dL (70-99) Calcium Level 9.5mg/dL (8.5-10.1) 9.1mg/dL (8.5-10.1) Total Bilirubin 0.2mg/dL (0.2-1.0) Aspartate Amino Transf (AST/SGOT) 14U/L (15-37) Alanine Aminotransferase (ALT/SGPT) 18U/L (14-59) Alkaline Phosphatase 62U/L (46-116) Total Protein 7.5g/dL (6.4-8.2) Albumin 3.7g/dL (3.4-5.0) Albumin/Globulin Ratio 1.0 (1.0-1.7) KATE WADDELL MD Dec 10, 2016 13:08
[2016-12-10] MEDS ORDERED: FENTANYL PF 100 MCG/2 ML VIAL. IV PRN (13:45)
[2016-12-10] MEDS ORDERED: DIPHENHYDRAMINE 50 MG/ML VIAL. IV PRN (13:45)
[2016-12-10] MEDS ORDERED: MEPERIDINE PF 25 MG/ML VIAL. IV PRN (13:45)
[2016-12-10] MEDS ORDERED: PROCHLORPERAZINE 10 MG/2 ML VIAL. IV PRN (13:45)
[2016-12-10] MEDS ORDERED: MORPHINE SULFATE 4 MG/ML DISP.SYRIN. IV PRN (13:45)
[2016-12-10] MEDS ORDERED: HYDROMORPHONE 2 MG/ML VIAL. IV PRN (13:45)
[2016-12-10] MEDS ORDERED: IV DEXTROSE 5%-LACT RINGERS 1,000 ML IV SCH (14:00)
--- NOTE | 2016-12-10 14:18 | OP ---
DATE OF SURGERY: 12/10/2016 PREOPERATIVE DIAGNOSIS: Missed . POSTOPERATIVE DIAGNOSIS: Missed . OPERATION PERFORMED: D and C, suction curettage. DESCRIPTION OF PROCEDURE: The patient was taken to the operating room. Under general anesthesia, the patient was placed in a dorsal lithotomy position. Perineum was prepped and draped in the usual manner. She did receive Ancef 2 g prior to starting the procedure and a weighted speculum inserted in the posterior vaginal wall. Anterior lip of the cervix is held with a tenaculum and there was tissues protruding through the external os, ring forceps is used to remove the tissues from the external os and then cervix is already dilated and size 8 suction-tip cannula was used to suction the uterus. She did receive 20 units of Pitocin IV bottle of fluid during the time of the D and C. All the curettings obtained, subjective for pathological examination. At the end of the curettage, a medium-sized curette is used to curet the endometrial cavity and after this, the speculum tenaculum is removed. All the curettings sent for histopathological examination. The patient tolerated the procedure well. Estimated blood loss about 200 mL. Postoperative condition is stable. KATE WADDELL MD DR: JAVIER/gisella JOB#: [id number] / [id number]
[2016-12-11] MEDS ORDERED: CEFAZOLIN 2GM PREMIX 50 ML IV PRN (06:00)
--- NOTE | 2016-12-11 17:01 | PATHOLOGY ---
PATHOLOGY REPORT * * * * * * * * FINAL DIAGNOSIS: Uterine contents, D and C: - Products of conception, comprised of immature chorionic villi showing focal degenerative changes and intervillous fibrin, hemorrhage, and acute inflammation, and segments of decidual tissue showing focal necrosis, acute inflammation, and hemorrhage. (JPM:csd; d/t: 12/11/2016) REPORT ELECTRONICALLY SIGNED BY: Andrade Lilly M.D. DATE/TIME: 12/11/2016 17:00 * * * * * * * * GROSS PATHOLOGY: The specimen is received in formalin labeled "Rubin Beckham products of conception". Received is a segment of pink-diehl decidua with a slight amount of attached spongiform tissue and blood coagulum measuring 6.3 x 4.1 x 2.1 cm in aggregate dimensions. or embryonic tissue is not grossly identified. Vesicular structures are absent. The specimen is submitted representatively in cassettes A1 through A3. (CAA; 12/10/2016) INITIAL CPT CODE(S): A; 80745 Professional services performed [place] [address] Technical services performed by [facility] at [address] [place] [address]. SPECIMEN(S) RECEIVED: A.Products of conception CLINICAL HISTORY: Missed PATIENT: RUBIN BECKHAM /AGE: 1 1995 (Age: 21) PATIENT #: [id number] ALT CASE #: SPECIMEN COLLECTION DATE: 12/10/2016 SPECIMEN RECEIVED DATE: 12/10/2016 [facility] - [address] [place] [address] - PHONE: [phone] * * * END OF REPORT * * *
== END 2016-12-10 19:30 | disposition home or self-care (01) | DRG 770 ==
LOC: ER 20:37 → 3 NORTH 23:02
PROVIDERS: ADMIT Obstetrics & Gynecology; ATTEND Obstetrics & Gynecology
PROC: 10D17ZZ Extraction of Products of Conception, Retained, Via Natural or Artificial Opening (ICD-10-PCS; principal; 2016-12-10)
DX: O02.1 Missed abortion (principal)
CPT/HCPCS: 36415; 76817; 80048; 80053; 84702; 85027; 86850; 86900; 86901; 96361; 96374; J0690; J1100; J2405; J2590; J2704; J3010; J7030; J7120; 99285-25

== ENCOUNTER 2016-12-25 14:17 | Emergency (ER) | payer OTHER ==
[~2016-12-25] VITALS: Ht 154.9 cm; Wt 70.8 kg
[2016-12-25] MEDS ORDERED: IV NORMAL SALINE 1000ML BAG 1,000 ML IV SCH (15:00)
--- NOTE | 2016-12-25 15:07 | PHYS DOC ---
Past Medical History Past Medical History: Constipation, Other Additional Past Medical Histor: "digestive system problems" Past Surgical History: Other Additional Past Surgical Histo: D&C Alcohol Use: None Drug Use: None Adult General Chief Complaint Chief Complaint: OVERDOSE HPI HPI Patient is a 21 year old female who presents to the emergency department for evaluation after reportedly taking an unknown medication prior to arrival. The patient is accompanied by her boyfriend and her boyfriend's cousin. The patient is a poor historian and is vague with her answers to questioning during history taking. The patient reportedly took the medication at 1400. The patient states that she was trying to sleep and took the medication to help her. When asked what medication she took, the patient states " I don't know." When asked if she knew what the medication was used for, she states "I was taking it in the past for cramping." When asked, he feels the patient took, she states "a couple." When asked again to provide a specific number, the patient states "I don't know. " Patient denies any pain. Patient is noticeably lethargic during history taking. The patient's boyfriend stated that she had been up all night and this is the reason why she is tired. The patient denies suicidal or homicidal ideation. The patient's boyfriend states he does not think she was trying to hurt herself, however the boyfriend's cousin states that he believes that she could be suicidal. He states that the patient recently had a miscarriage and has been very upset at home. He believes that the patient took several pills of different medications in an attempt to hurt herself. Review of Systems Review of Systems Constitutional: Lethargy, Denies fever or chills [] Eyes: Denies change in visual acuity, redness, or eye pain [] HENT: Denies nasal congestion or sore throat [] Respiratory: Denies cough or shortness of breath [] Cardiovascular: Denies chest pain or edema [] GI: Denies abdominal pain, nausea, vomiting, bloody stools or diarrhea [] : Denies dysuria or hematuria [] Musculoskeletal: Denies back pain or joint pain [] Integument: Denies rash or skin lesions [] Neurologic: Denies headache, focal weakness or sensory changes [] Current Medications Current Medications Current Medications Medications (Trade) Dose Ordered Sig/Florian Start Time Stop Time Status Last Admin Dose Admin Charcoal/Sorbitol (Insta-Lisa Sorbitol) 50 gm 1X ONCE 12/25/16 15:15 12/25/16 15:16 DC 12/25/16 15:29 50 GM Ondansetron HCl (Zofran) 4 mg 1X ONCE 12/25/16 16:15 12/25/16 16:16 DC Sodium Chloride (Iv Sodium Chloride 0.9% 1000ml Bag) 1,000 ml @ 1,000 mls/hr Q1H 12/25/16 15:00 12/25/16 15:59 DC 12/25/16 15:54 1,000 MLS/HR Allergies Allergies Allergies Coded Allergies Type Severity Reaction Last Updated Verified No Known Drug Allergies 08/09/16 No Physical Exam Physical Exam Constitutional: Lethargic, afebrile, no acute distress. [] HENT: Normocephalic, atraumatic, bilateral external ears normal, oropharynx moist, no oral exudates, nose normal. [] Eyes: PERRLA, EOMI, conjunctiva normal, no discharge. [] Neck: Normal range of motion, no tenderness, supple, no stridor. [] Cardiovascular:Heart rate regular rhythm, no murmur [] Lungs & Thorax: Bilateral breath sounds clear to auscultation [] Abdomen: Bowel sounds normal, soft, no tenderness, no masses, no pulsatile masses. [] Skin: Warm, dry, no erythema, no rash. [] Back: No tenderness, no CVA tenderness. [] Extremities: No tenderness, no cyanosis, no clubbing, ROM intact, no edema. [] Neurologic: Lethargic, oriented to person, place, and time, normal motor function, normal sensory function, no focal deficits noted. [] Psychologic: Affect flat, depressed mood, denies suicidal or homicidal ideation. [] Current Patient Data Vital Signs Vital Signs Date Time Temp Pulse Resp B/P Pulse Ox O2 Delivery O2 Flow Rate FiO2 12/25/16 18:00 68 21 95/44 100 12/25/16 15:00 Room Air 12/25/16 14:21 98.1 98.1 Lab Values Laboratory Tests Test 12/25/16 14:40 12/25/16 15:30 12/25/16 16:00 12/25/16 18:15 POC Urine HCG, Qualitative Hcg negative (Negative) Urine Collection Type Unknown Urine Color Yellow Urine Clarity Cloudy Urine pH 8.0 Urine Specific [place] 1.020 Urine Protein Negativemg/dL (NEG-TRACE) Urine Glucose (UA) Negativemg/dL (NEG) Urine Ketones (Stick) Negativemg/dL (NEG) Urine Blood Negative (NEG) Urine Nitrite Negative (NEG) Urine Bilirubin Negative (NEG) Urine Urobilinogen Dipstick 1.0mg/dL (0.2 mg/dL) Urine Leukocyte Esterase Trace (NEG) Urine RBC 3-5/HPF (0-2) Urine WBC 1-4/HPF (0-4) Urine Squamous Epithelial Cells Many/LPF Urine Amorphous Sediment Present/HPF Urine Bacteria 0/HPF (0-FEW) Urine Mucus Marked/LPF Urine Opiates Screen Neg (NEG) Urine Methadone Screen Neg (NEG) Urine Barbiturates Neg (NEG) Urine Phencyclidine Screen Neg (NEG) Urine Amphetamine/Methamphetamine Neg (NEG) Urine Benzodiazepines Screen Neg (NEG) Urine Cocaine Screen Neg (NEG) Urine Cannabinoids Screen Pos (NEG) Urine Ethyl Alcohol Neg (NEG) White Blood Count 9.6x10^3/uL (4.0-11.0) Red Blood Count 4.49x10^6/uL (3.50-5.40) Hemoglobin 13.1g/dL (12.0-15.5) Hematocrit 39.4% (36.0-47.0) Mean Corpuscular Volume 88fL (79-100) Mean Corpuscular Hemoglobin 29pg (25-35) Mean Corpuscular Hemoglobin Concent 33g/dL (31-37) Red Cell Distribution Width 14.0% (11.5-14.5) Platelet Count 258x10^3/uL (140-400) Neutrophils (%) (Auto) 78% (31-73) H Lymphocytes (%) (Auto) 17% (24-48) L Monocytes (%) (Auto) 4% (0-9) Eosinophils (%) (Auto) 1% (0-3) Basophils (%) (Auto) 1% (0-3) Neutrophils # (Auto) 7.5x10^3uL (1.8-7.7) Lymphocytes # (Auto) 1.6x10^3/uL (1.0-4.8) Monocytes # (Auto) 0.4x10^3/uL (0.0-1.1) Eosinophils # (Auto) 0.1x10^3/uL (0.0-0.7) Basophils # (Auto) 0.1x10^3/uL (0.0-0.2) Sodium Level 142mmol/L (136-145) Potassium Level 4.2mmol/L (3.5-5.1) Chloride Level 105mmol/L (98-107) Carbon Dioxide Level 29mmol/L (21-32) Anion Gap 8 (6-14) Blood Urea Nitrogen 15mg/dL (7-20) Creatinine 1.0mg/dL (0.6-1.0) Estimated GFR (Cockcroft-Gault) 84.7 Glucose Level 77mg/dL (70-99) Calcium Level 9.1mg/dL (8.5-10.1) Magnesium Level 2.1mg/dL (1.8-2.4) Total Bilirubin 0.3mg/dL (0.2-1.0) 0.2mg/dL (0.2-1.0) Direct Bilirubin 0.1mg/dL (0.0-0.2) 0.1mg/dL (0.0-0.2) Aspartate Amino Transferase (AST) 45U/L (15-37) H 39U/L (15-37) H Alanine Aminotransferase (ALT) 36U/L (14-59) 32U/L (14-59) Alkaline Phosphatase 59U/L (46-116) 52U/L (46-116) Total Protein 7.7g/dL (6.4-8.2) 6.9g/dL (6.4-8.2) Albumin 4.0g/dL (3.4-5.0) 3.6g/dL (3.4-5.0) Salicylates Level < 2.8mg/dL (2.8-20.0) L Salicylate Last Dose Date Unk Salicylate Last Dose Time Unk Acetaminophen Level 10.6mcg/ml (10-30) 4.20mcg/ml (10-30) L Acetaminophen Last Dose Date Unk Acetaminophen Last Dose Time Unk Ethyl Alcohol Level < 10mg/dL (0-10) Prothrombin Time 13.2SEC (11.7-14.0) Prothrombin Time INR 1.1 (0.8-1.1) Laboratory Tests 12/25/16 16:00 Laboratory Tests 12/25/16 16:00 EKG EKG Not performed [] Radiology/Procedures Radiology/Procedures Not performed [] Course & Med Decision Making Course & Med Decision Making Pertinent Labs and Imaging studies reviewed. (See chart for details) The patient was given activated charcoal in the emergency department due to unknown amount of medication ingested as well as types of medication ingested. The patient was able to initially ingest the activated charcoal but did experience vomiting while in the emergency department. Patient's 4 hour Tylenol level showed nontoxic levels. The patient was medically cleared for PAT team evaluation. After speaking with the PAT team screener, we agree that the patient shows many concerning findings at this time as the patient has a very flat affect, depressed mood, does not appear to be in a stable situation as she is with her boyfriend who has repeatedly tried to minimize her problems while in the emergency department. The patient experienced atraumatic event as she had a miscarriage 2 weeks ago. There is also high suspicion of recent drug use as the patient and the patient's boyfriend smell of marijuana and the patient did test positive for THC in her urine drug screen. For these reasons, I have asked that the PAT team screener pursue involuntary admission to a psychiatric facility. The care of patient was signed out to Dr. Molina pending full evaluation. Dragon Disclaimer Dragon Disclaimer This electronic medical record was generated, in whole or in part, using a voice recognition dictation system. Departure Departure Impression: Primary Impression: Drug overdose, intentional Referrals: NO PCP (PCP) Problem Qualifiers Primary Impression: Drug overdose, intentional Encounter type: initial encounter Qualified Code: T50.902A - Poisoning by unspecified drugs, medicaments and biological substances, intentional self-harm , initial encounter ANA LOZANO MD Dec 25, 2016 15:07
[2016-12-25] MEDS ORDERED: CHARCOAL/SORBITOL 50 GM/240 ML SUSPENSION. PO ONE (15:15)
[2016-12-25 15:50] LABS: BARBITURATES NEG (NEG); BENZODIAZEPINES NEG (NEG); CANNABINOIDS POS (NEG); COCAINE NEG (NEG); METHADONE NEG (NEG); OPIATES NEG (NEG); PHENCYCLIDINE NEG (NEG)
[2016-12-25 15:54] LABS: ETHANOL, URINE NEG (NEG)
[2016-12-25 15:55] LABS: BILIRUBIN,URINE NEGATIVE (NEG); GLUCOSE,URINE NEGATIVE (NEG); NITRITE,URINE NEGATIVE (NEG); PROTEIN,URINE NEGATIVE (NEG-TRACE)
[2016-12-25 15:56] LABS: BACTERIA,URINE 0 /HPF (0-FEW); SQUAMOUS EPITHELIAL CELL,UR MANY /LPF
[2016-12-25] MEDS ORDERED: ONDANSETRON PF 4 MG/2 ML VIAL. ONE (15:58)
[2016-12-25] MEDS ORDERED: ONDANSETRON PF 4 MG/2 ML VIAL. IV ONE ×2 (16:15)
[2016-12-25 16:19] LABS: CALCIUM 9.1 mg/dL (8.5-10.1); GFR 84.7; POTASSIUM 4.2 mmol/L (3.5-5.1)
[2016-12-25 16:26] LABS: BASO # 0.1 x10^3/uL (0.0-0.2); BASO % 1 % (0-3); DIRECT BILIRUBIN 0.1 mg/dL (0.0-0.2); EOS % 1 % (0-3); ETHANOL < 10 mg/dL (0-10); HEMATOCRIT 39.4 % (36.0-47.0); HEMOGLOBIN 13.1 g/dL (12.0-15.5); LYMPH # 1.6 x10^3/uL (1.0-4.8); LYMPH % 17 % (24-48); MAGNESIUM 2.1 mg/dL (1.8-2.4); MEAN CORPUSCULAR HEMOGLOBIN 29 pg (25-35); MEAN CORPUSCULAR HGB CONC 33 g/dL (31-37); MEAN CORPUSCULAR VOLUME 88 fL (79-100); MONO % 4 % (0-9); NEUT % 78 % (31-73); PLATELET COUNT 258 x10^3/uL (140-400); RED BLOOD COUNT 4.49 x10^6/uL (3.50-5.40); TOTAL BILIRUBIN 0.3 mg/dL (0.2-1.0); TOTAL PROTEIN 7.7 g/dL (6.4-8.2); WHITE BLOOD COUNT 9.6 x10^3/uL (4.0-11.0)
[2016-12-25 19:09] LABS: ALBUMIN 3.6 g/dL (3.4-5.0); DIRECT BILIRUBIN 0.1 mg/dL (0.0-0.2); TOTAL BILIRUBIN 0.2 mg/dL (0.2-1.0); TOTAL PROTEIN 6.9 g/dL (6.4-8.2)
[2016-12-25 19:11] LABS: INR 1.1 (0.8-1.1); PROTHROMBIN TIME PATIENT 13.2 SEC (11.7-14.0)
[2016-12-25 23:00] VITALS: BP 89/62
--- NOTE | 2016-12-26 06:32 | EKG ---
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
== END 2016-12-25 23:51 | disposition home or self-care (01) ==
LOC: ER 14:17
DX: T65.92XA Toxic effect of unspecified substance, intentional self-harm, initial encounter (principal); Y92.89 Other specified places as the place of occurrence of the external cause; F32.9 Major depressive disorder, single episode, unspecified
CPT/HCPCS: 36415; 80048; 80076; 80305; 81001; 83735; 84703; 85027; 85610; 87086; 93005; 96361; 96374; 99285; G6038; J2405; J7030; 81025; G0480; G0481; 80196

== ENCOUNTER 2017-05-21 11:11 | Emergency (ER) | payer OTHER ==
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
[2017-05-21] MEDS ORDERED: ACETAMINOPHEN 500 MG TABLET PO ONE (11:30)
[2017-05-21 11:37] VITALS: BP 89/62
[2017-05-21 11:38] LABS: BILIRUBIN,URINE NEGATIVE (NEG); GLUCOSE,URINE NEGATIVE (NEG); NITRITE,URINE NEGATIVE (NEG); PH,URINE 6.5; PROTEIN,URINE NEGATIVE (NEG-TRACE)
[2017-05-21 11:44] LABS: SQUAMOUS EPITHELIAL CELL,UR MANY /LPF
[2017-05-21 11:45] LABS: BACTERIA,URINE MODERATE /HPF (0-FEW); RBC,URINE OCC /HPF (0-2)
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
[2017-05-21] MEDS ORDERED: ACET325T9 PO (13:14)
== END 2017-05-21 13:30 | disposition home or self-care (01) ==
LOC: ER 11:11
DX: O20.0 Threatened abortion (principal); Z3A.14 14 weeks gestation of pregnancy; V43.62XA Car passenger injured in collision with other type car in traffic accident, initial encounter; Y93.89 Activity, other specified; Y92.410 Unspecified street and highway as the place of occurrence of the external cause; Y99.8 Other external cause status
CPT/HCPCS: 76805; 81001; 81025; 87086; 99285-25

== ENCOUNTER 2018-03-12 08:54 | Emergency (ER) | payer SELFPAY, OTHER | END 2018-03-12 09:49 | disposition home or self-care (01) | LOC: ER 09:49 | DX: L60.0 Ingrowing nail (principal) | CPT/HCPCS: 99283 ==

== ENCOUNTER 2018-09-21 10:00 | Emergency (ER) | payer OTHER ==
[~2018-09-21] VITALS: Ht 154.9 cm; Wt 70.3 kg
[~2018-09-21 10:00] MED LIST changes: +IBUP-1060 PO
[2018-09-21 10:07] VITALS: BP 111/59
--- NOTE | 2018-09-21 10:50 | PHYS DOC ---
Past Medical History Past Medical History: No Pertinent History, Constipation, Other Additional Past Medical Histor: "digestive system problems" Past Surgical History: , Other Additional Past Surgical Histo: D&C Alcohol Use: None Drug Use: None Adult General Chief Complaint Chief Complaint: VAGINAL BLEEDING HPI HPI 22 y/o female presents c/o urinary freq. and pelvic pressure/pain. She reports symptoms have been ongoing for the past few days. She reports she has left arm control implant and her menstrual cycle ended last week. She denies any abnormal bleeding. Patient reports she has had white creamy vaginal discharge denying odor. Patient reports she has no concerns for STDs but is wanting pelvic exam done while in the ER. Patient denies any previous STDs. She denies fever or chills. She denies taking any [id number] medications for pain. Review of Systems Review of Systems Constitutional: Denies fever or chills [] Eyes: Denies change in visual acuity, redness, or eye pain [] HENT: Denies nasal congestion or sore throat [] Respiratory: Denies cough or shortness of breath [] Cardiovascular: No additional information not addressed in HPI [] GI: Denies abdominal pain, nausea, vomiting, bloody stools or diarrhea [] : Denies dysuria or hematuria. Reports urinary freq. and vaginal itching/ discharge. Reports has had some irreg. light vag. spotting. Denies pelvis pain/ pressure Musculoskeletal: Denies back pain or joint pain [] Integument: Denies rash or skin lesions [] Neurologic: Denies headache, focal weakness or sensory changes [] Endocrine: Denies polyuria or polydipsia [] All other systems were reviewed and found to be within normal limits, except as documented in this note. Allergies Allergies Allergies Coded Allergies Type Severity Reaction Last Updated Verified No Known Drug Allergies 08/09/16 No Physical Exam Physical Exam Constitutional: Well developed, well nourished, no acute distress, non-toxic appearance. [] HENT: Normocephalic, atraumatic, oropharynx moist, no oral exudates, nose normal. [] Eyes: Pupils equal, conjunctiva normal, no discharge. [] Neck: Normal range of motion, no tenderness, supple, no stridor. [] Cardiovascular: Heart rate regular rhythm, no murmur [] Lungs & Thorax: Bilateral breath sounds clear to auscultation- resp. equal/ nonlabored Abdomen: Bowel sounds normal, soft, no tenderness/distention Skin: Warm, dry, no erythema, no rash. [] Back: No tenderness, no CVA tenderness. [] Extremities: No tenderness, no cyanosis, no clubbing, ROM intact, no edema. [] Neurologic: Alert and oriented X 3, normal motor function, normal sensory function, no focal deficits noted. [] Psychologic: Affect normal, judgement normal, mood normal. [] Current Patient Data Vital Signs Lab Values Laboratory Tests Test 09/21/18 10:17 09/21/18 12:00 09/21/18 12:24 POC Urine HCG, Qualitative Hcg negative (Negative) Urine Collection Type Unknown Urine Color Yellow Urine Clarity Cloudy Urine pH 8.0 Urine Specific [place] >=1.030 Urine Protein 30 mg/dL (NEG-TRACE) Urine Glucose (UA) Negative mg/dL (NEG) Urine Ketones (Stick) Negative mg/dL (NEG) Urine Blood Negative (NEG) Urine Nitrite Negative (NEG) Urine Bilirubin Negative (NEG) Urine Urobilinogen Dipstick 1.0 mg/dL (0.2 mg/dL) Urine Leukocyte Esterase Moderate (NEG) Urine RBC 0 /HPF (0-2) Urine WBC Tntc /HPF (0-4) Urine Squamous Epithelial Cells Many /LPF Urine Bacteria Moderate /HPF (0-FEW) Urine Mucus Marked /LPF Chlamydia DNA Probe Negative (Negative) Neisseria gonorrhoeae DNA Probe Negative (Negative) Microbiology 09/21/18 Wet Prep - Final, Complete 09/21/18 Urine Culture - Final, Complete 09/21/18 Urine Culture Result 1 (NATHALY) - Final, Complete EKG EKG [] Radiology/Procedures Radiology/Procedures [] Course & Med Decision Making Course & Med Decision Making Pertinent Labs and Imaging studies reviewed. (See chart for details) 1220: Patient provides further information she reports her control implant was done 9 months ago after delivery of her child. Patient reports she has been with her boyfriend only 4 months. Patient states her vaginal discharge started a few days ago she denies any foul odor. Pelvic exam was done patient had small amount of white thick discharge no foul odor or signs of infection. Patient had no lesions or rash. Cervical os closed and no CMT or bimanual tenderness w/exam. No palp. masses. UA is pending as patient had urinated without collecting specimen which delayed test results. Patient had been offered dose of ibuprofen for pain however she reports pain to be tolerable and wanted no medications. 1255: Discussed test results with patient- UA neg. blood moderate leuks with micro showing TNTC WBCs. Neg. UCG. Wet mount neg. for yeast/trich- discussed BV with pt. Discussed option for prophylactic treatment with Rocephin and azithromycin as GC and chlamydia results are pending. Patient is wanting to hold off on those treatments until results come back. Educated that results with be back in 2-3 days and she should follow-up on those results. Will provide prescriptions for Flagyl and Keflex for treatment of bacterial vaginosis and UTI. Patient advised on [id number] Tylenol and/or ibuprofen for pain as needed. Patient educated that she should have follow-up appointments after antibiotic treatment to ensure infection completely treated. Advised she should have her partner evaluated and treated as needed as well. Patient has been in no visible distress while in the ER. Patient remains nontoxic in appearance. Discharge instructions were discussed and education provided on signs and symptoms to return to ER for. Staff Physician Addendum: I was working in the ER during the course of this patient's visit. I was available for consultation as needed, but I was not directly involved in the care of this patient. Dragon Disclaimer Dragon Disclaimer This electronic medical record was generated, in whole or in part, using a voice recognition dictation system. Departure Departure Impression: Primary Impression: Urinary tract infection Additional Impression: Bacterial vaginosis Disposition: 01 HOME, SELF-CARE Condition: STABLE Referrals: UNKNOWN PCP NAME (PCP) Patient Instructions: Bacterial Vaginosis, Urinary Tract Infection Additional Instructions: As discussed you your test results are pending and will be back in 2-3 days follow-up on those results. Avoid drinking alcohol while taking the antibiotic prescriptions. Drink plenty of water. Following completion of antibiotics you should have reevaluation to make sure the infection is completely treated. Condom use while taking antibiotics until follow-up appointment. Tylenol and/or ibuprofen as needed for pain relief as directed on container. Scripts Cephalexin (KEFLEX) 500 Mg Capsule 1 CAP PO BID, #14 CAP 0 Refills Prov: PATRICIA WALLACE APRN 09/21/18 Metronidazole (FLAGYL) 500 Mg Tablet 1 TAB PO BID, #14 TAB 0 Refills Do not drink alcohol while taking this medication and for 3 days following completion of all medication Prov: PATRICIA WALLACE APRN 09/21/18 Problem Qualifiers PATRICIA WALLACE APRN Sep 21, 2018 10:50 CHRISTIN FRASER MD Dec 26, 2018 20:15
[2018-09-21 12:15] LABS: BILIRUBIN,URINE NEGATIVE (NEG); CLARITY,URINE CLOUDY; COLOR,URINE YELLOW; NITRITE,URINE NEGATIVE (NEG); PROTEIN,URINE 30 mg/dL (NEG-TRACE)
[2018-09-21 12:28] LABS: BACTERIA,URINE MODERATE /HPF (0-FEW); RBC,URINE 0 /HPF (0-2); SQUAMOUS EPITHELIAL CELL,UR MANY /LPF; WBC,URINE TNTC /HPF (0-4)
[2018-09-21] MEDS ORDERED: METR500T PO (13:06)
[2018-09-21] MEDS ORDERED: CEPH-264 PO (13:06)
[2018-09-22 13:28] LABS: GC PROBE Negative (Negative)
== END 2018-09-21 13:16 | disposition home or self-care (01) ==
LOC: ER 10:00
DX: N39.0 Urinary tract infection, site not specified (principal); N76.0 Acute vaginitis; B96.89 Other specified bacterial agents as the cause of diseases classified elsewhere; Z87.19 Personal history of other diseases of the digestive system
CPT/HCPCS: 81001; 81025; 87086; 87491; 87591; 99283; Q0111

== ENCOUNTER 2018-10-02 12:34 | Emergency (ER) | payer OTHER ==
[~2018-10-02] VITALS: Ht 154.9 cm; Wt 70.3 kg
[~2018-10-02 12:34] MED LIST changes: +METR500T PO
[2018-10-02] MEDS ORDERED: POLY10DR3 EACHEYE (14:20)
--- NOTE | 2018-10-02 14:21 | PHYS DOC ---
Past Medical History Past Medical History: No Pertinent History, Constipation, Other Additional Past Medical Histor: "digestive system problems" Past Surgical History: , Other Additional Past Surgical Histo: D&C Alcohol Use: None Drug Use: None Adult General Chief Complaint Chief Complaint: EYE PROBLEMS HPI HPI Patient is a 23 year old female who presents with 3 days of left eye redness and discharge and swelling and itching. Denies fevers or any other symptoms. Review of Systems Review of Systems Constitutional: Denies fever or chills [] Eyes: Denies change in visual acuity, redness, or eye pain [] HENT: Denies nasal congestion or sore throat [] Respiratory: Denies cough or shortness of breath [] Cardiovascular: No additional information not addressed in HPI [] GI: Denies abdominal pain, nausea, vomiting, bloody stools or diarrhea [] : Denies dysuria or hematuria [] Musculoskeletal: Denies back pain or joint pain [] Integument: Denies rash or skin lesions [] Neurologic: Denies headache, focal weakness or sensory changes [] Endocrine: Denies polyuria or polydipsia [] All other systems were reviewed and found to be within normal limits, except as documented in this note. Allergies Allergies Allergies Coded Allergies Type Severity Reaction Last Updated Verified No Known Drug Allergies 08/09/16 No Physical Exam Physical Exam Constitutional: Well developed, well nourished, no acute distress, non-toxic appearance. [] HENT: Normocephalic, atraumatic, bilateral external ears normal, oropharynx moist, no oral exudates, nose normal. [] Eyes: PERRLA, EOMI, conjunctiva normal, no discharge. [] Neck: Normal range of motion, no tenderness, supple, no stridor. [] Cardiovascular:Heart rate regular rhythm, no murmur [] Lungs & Thorax: Bilateral breath sounds clear to auscultation [] Abdomen: Bowel sounds normal, soft, no tenderness, no masses, no pulsatile masses. [] Skin: Warm, dry, no erythema, no rash. [] Back: No tenderness, no CVA tenderness. [] Extremities: No tenderness, no cyanosis, no clubbing, ROM intact, no edema. [] Neurologic: Alert and oriented X 3, normal motor function, normal sensory function, no focal deficits noted. [] Psychologic: Affect normal, judgement normal, mood normal. [] Current Patient Data Vital Signs Vital Signs Date Time Temp Pulse Resp B/P (MAP) Pulse Ox O2 Delivery O2 Flow Rate FiO2 10/02/18 14:23 99.0 66 14 144/76 (98) 96 Room Air 99.0 EKG EKG [] Radiology/Procedures Radiology/Procedures [] Course & Med Decision Making Course & Med Decision Making Patient is a 23 year old female who presents with 3 days of left eye redness and discharge and swelling and itching. Denies fevers or any other symptoms. Alert and oriented. Afebrile. Patient's left eye is reddened, 1+ edema, purulent discharge. Patient is given polymyxin B eyedrops and to follow up with primary care doctor. Dragon Disclaimer Dragon Disclaimer This electronic medical record was generated, in whole or in part, using a voice recognition dictation system. Departure Departure Impression: Primary Impression: Conjunctivitis Disposition: HOME, SELF-CARE Condition: STABLE Referrals: UNKNOWN PCP NAME (PCP) Patient Instructions: Conjunctivitis (Viral and Bacterial) Additional Instructions: Use medication as prescribed. Follow primary care couple days for a recheck. Scripts Polymyxin B Sulf/Trimethoprim (POLYMYXIN B-TMP EYE DROPS) 10 Ml Drops 1 DROP EACHEYE QID for 7 Days, #10 ML Prov: PHYLLIS RIVERA APRN 10/02/18 Problem Qualifiers Primary Impression: Conjunctivitis Conjunctivitis type: unspecified Laterality: left Qualified Codes: H10.9 - Unspecified conjunctivitis PHYLLIS RIVERA APRN Oct 02, 2018 14:20
[2018-10-02 14:23] VITALS: BP 144/76
== END 2018-10-02 14:42 | disposition home or self-care (01) ==
LOC: ER 12:34
DX: H10.89 Other conjunctivitis (principal); Z98.890 Other specified postprocedural states
CPT/HCPCS: 99283

== ENCOUNTER 2018-10-07 12:00 | Emergency (ER) | payer OTHER ==
[~2018-10-07] VITALS: Ht 154.9 cm; Wt 70.3 kg
[~2018-10-07 12:00] MED LIST changes: +POLY10DR3 EACHEYE
[2018-10-07 12:15] VITALS: BP 144/76
--- NOTE | 2018-10-07 12:40 | PHYS DOC ---
Past Medical History Past Medical History: Constipation, Other Additional Past Medical Histor: "digestive system problems" Past Surgical History: , Other Additional Past Surgical Histo: D&C Alcohol Use: None Drug Use: None Adult General Chief Complaint Chief Complaint: EYE PROBLEMS HPI HPI Patient is a 23 yo female who presents with requesting a note that says she can go back to work. Patient was seen in [facility] ED on 10/02/18, diagnosed with conjunctivitis, and treated with polymixin eye drops. She has taken the drops as prescribed and reports that her eye feels and looks better, although she is still having the severe morning mucus and eye crusting. She denies contact use, foreign body sensation, or change in visual acuity. She reports her daughter recently had similar symptoms which resolved without treatment. 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 She denies any other symptoms. Review of Systems Review of Systems Constitutional: Denies fever or chills [] Eyes: Denies change in visual acuity. Admits redness and discharge in L eye. Denies symptoms in R eye. HENT: Denies nasal congestion or sore throat [] Respiratory: Denies cough or shortness of breath [] GI: Denies abdominal pain, nausea, vomiting : Denies dysuria or hematuria [] Complete systems were reviewed and found to be within normal limits, except as documented in this note. Current Medications Current Medications Current Medications Medications (Trade) Dose Ordered Sig/Florian Start Time Stop Time Status Last Admin Dose Admin Erythromycin (Romycin) 0.25 inch 1X ONCE 10/07/18 12:45 10/07/18 12:46 DC Allergies Allergies Allergies Coded Allergies Type Severity Reaction Last Updated Verified No Known Drug Allergies 08/09/16 No Physical Exam Physical Exam Constitutional: Well developed, well nourished, no acute distress, non-toxic appearance. [] HENT: Normocephalic, atraumatic, bilateral external ears normal, oropharynx moist, no oral exudates, nose normal. [] Eyes: PERRL, EOMI, R conjunctiva clear with no erythema. L conjunctiva erythematous w/ dry exudates crusted around eye and in eyelashes. Cardiovascular:Heart rate regular rhythm, no murmur [] Lungs & Thorax: Bilateral breath sounds clear to auscultation [] Abdomen: soft, no tenderness Skin: Warm, dry, no erythema, no rash. [] Neurologic: Alert and oriented X 3, normal motor function, normal sensory function, no focal deficits noted. [] EKG EKG [] Radiology/Procedures Radiology/Procedures [] Course & Med Decision Making Course & Med Decision Making Patient is 23 yo female w/ complaint of L eye redness which has not resolved. Patient was seen here at [facility] last week (10/02/18), diagnosed with pink eye, and given polymixin eye drops. She reports that her symptoms have improved but have not resolved. On physical exam patient's L eye has significant conjunctival erythema with dried discharge around eyelid and in eyelashes. Remainder of physical exam unremarkable. Patient treated with erythromycin ointment in ED and given prescription to continue ointment. Also advised patient that she should close eye and wash around affected eye with Blaise and Blaise's tear free baby shampoo. Finally, instructed patient to discontinue use of polymixin drops. Educated patient that her symptoms should resolve after 24-48 hrs. Gave patient the name of an opthomologist to follow up with in the event symptoms do not resolve. 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 Discussed findings and plan with patient and family, who acknowledge understanding and agreement. Dragon Disclaimer Aide Disclaimer This electronic medical record was generated, in whole or in part, using a voice recognition dictation system. Departure Departure Impression: Primary Impression: Conjunctivitis Disposition: 01 HOME, SELF-CARE Condition: STABLE Referrals: UNKNOWN PCP NAME (PCP) Angel REICH MD Patient Instructions: Conjunctivitis (Viral and Bacterial) Scripts Erythromycin Base (Erythromycin) 1 Gm Oint...g. 0.25 INCH [facility] 5 Days[facility] Prov: MANI SHELDON DO 10/07/18 Problem Qualifiers Primary Impression: Conjunctivitis Conjunctivitis type: acute Acute conjunctivitis type: unspecified Laterality: left Qualified Codes: H10.32 - Unspecified acute conjunctivitis, left eye MANI SHELDON DO Oct 07, 2018 12:40
[2018-10-07] MEDS ORDERED: ERYTHROMYCIN 0.5% OPHTH OINTMENT 1GM TUBE. OS ONE (12:45)
[2018-10-07] MEDS ORDERED: ERYT1OIN6 OP (12:53)
== END 2018-10-07 13:17 | disposition home or self-care (01) ==
LOC: ER 12:00
DX: H10.32 Unspecified acute conjunctivitis, left eye (principal); Z98.890 Other specified postprocedural states
CPT/HCPCS: 99283

== ENCOUNTER 2019-05-02 15:31 | Emergency (ER) | payer SELFPAY ==
[~2019-05-02 15:31] MED LIST changes: +ERYT1OIN6 OP
== END 2019-05-02 17:38 | disposition left against medical advice (07) ==
LOC: ER 15:31
DX: N76.0 Acute vaginitis (principal); Z53.21 Procedure and treatment not carried out due to patient leaving prior to being seen by health care provider

== ENCOUNTER 2019-06-05 12:40 | Emergency (ER) | payer SELFPAY ==
[~2019-06-05] VITALS: Ht 154.9 cm; Wt 70.3 kg
[2019-06-05 12:45] VITALS: BP 131/69
--- NOTE | 2019-06-05 13:25 | PHYS DOC ---
Past Medical History Past Medical History: Constipation, Other Additional Past Medical Histor: "digestive system problems" Past Surgical History: , Other Additional Past Surgical Histo: D&C Alcohol Use: None Drug Use: None Adult General Chief Complaint Chief Complaint: SKIN RASH/ABSCESS [facility] HPI Patient is a 23 year old female who presented to the emergency room with complaints of her lips swelling and itching for the last 2 weeks. Patient states the symptoms started after using a new face wash that burned and peeled her skin. She currently denies any pain. Patient denies any shortness of breath, wheezing, cough, or difficulty swallowing. Review of Systems Review of Systems Constitutional: Denies fever or chills [] Eyes: Denies redness, or eye pain [] HENT: Denies nasal congestion or sore throat; see history of present illness[] Respiratory: Denies cough or shortness of breath [] Cardiovascular: No additional information not addressed in HPI [] Integument: See history of present illness Neurologic: Denies headache Complete systems were reviewed and found to be within normal limits, except as documented in this note. Allergies Allergies Allergies Coded Allergies Type Severity Reaction Last Updated Verified No Known Drug Allergies 08/09/16 No Physical Exam Physical Exam Constitutional: Well developed, well nourished, no acute distress, non-toxic appearance. [] HENT: Normocephalic, atraumatic, bilateral external ears normal, oropharynx moist, no oral exudates, nose normal. [] Eyes: PERRLA, EOMI, conjunctiva normal, no discharge. [] Neck: Normal range of motion, no stridor. [] Cardiovascular:Heart rate regular rhythm Lungs & Thorax: Bilateral breath sounds clear to auscultation [] Skin: Warm, dry; mild swelling, erythema Extremities: No cyanosis, ROM intact, no edema. [] Neurologic: Alert and oriented X 3, no focal deficits noted. [] Psychologic: Affect normal, judgement normal, mood normal. [] Current Patient Data Vital Signs Vital Signs Date Time Temp Pulse Resp B/P (MAP) Pulse Ox O2 Delivery O2 Flow Rate FiO2 06/05/19 12:45 98.7 70 16 131/69 (89) 98 Room Air 98.7 EKG EKG [] Radiology/Procedures Radiology/Procedures [] Course & Med Decision Making Course & Med Decision Making Pertinent Labs and Imaging studies reviewed. (See chart for details) [] Dragon Disclaimer Dragon Disclaimer This electronic medical record was generated, in whole or in part, using a voice recognition dictation system. Departure Departure Impression: Primary Impression: Contact dermatitis Disposition: HOME, SELF-CARE Condition: LEFT WITHOUT BEING SEEN Referrals: NO PCP (PCP) Patient Instructions: Contact Dermatitis, [id number] Additional Instructions: Stop using the face wash that caused irritation to your face. Discontinue any lip products other than vaseline to moisturize your lips. You may take Benadryl as needed for itching. Follow up with your primary care doctor in 1-2 days, return to the ER if symptoms worsen. Problem Qualifiers Primary Impression: Contact dermatitis Contact dermatitis type: allergic Contact dermatitis trigger: cosmetics Qualified Codes: L23.2 - Allergic contact dermatitis due to cosmetics DARNELL MESA APRN Jun 05, 2019 13:25
== END 2019-06-05 13:27 | disposition home or self-care (01) ==
LOC: ER 12:40
DX: L23.2 Allergic contact dermatitis due to cosmetics (principal); K59.00 Constipation, unspecified; Z98.890 Other specified postprocedural states
CPT/HCPCS: 99281

== ENCOUNTER 2019-06-17 15:03 | Emergency (ER) | payer SELFPAY ==
[~2019-06-17] VITALS: Ht 154.9 cm; Wt 70.3 kg
[2019-06-17 15:14] VITALS: BP 142/82
--- NOTE | 2019-06-17 15:36 | PHYS DOC ---
Past Medical History Past Medical History: Constipation, Other Additional Past Medical Histor: "digestive system problems" (MANI CORREA APRN) Past Surgical History: , Other Additional Past Surgical Histo: D&C (MANI CORREA APRN) Alcohol Use: None Drug Use: None (MANI CORREA APRN) Attending Signature I have participated in the care of this patient and I have reviewed and agree with all pertinent clinical information above including history, exam, and recommendations. (TREY ASHBY MD) Adult General Chief Complaint Chief Complaint: ALLERGIC REACTION HPI HPI Patient is a 23 year old female that presents stating that she woke up this morning her lip was dry and itchy and slightly swollen. She states that she's been told before that she is allergic to look loss of lip gloss on last night. She states that she is not for like her throat is swelling. No other complaints. His been using Aquaphor on her lips. (MANI CORREA APRN) Review of Systems Review of Systems Constitutional: Denies fever or chills [] Eyes: Denies change in visual acuity, redness, or eye pain [] HENT: Denies nasal congestion or sore throat [] Respiratory: Denies cough or shortness of breath [] Cardiovascular: No additional information not addressed in HPI [] GI: Denies abdominal pain, nausea, vomiting, bloody stools or diarrhea [] : Denies dysuria or hematuria [] Musculoskeletal: Denies back pain or joint pain [] Integument: Reports lips are itchy and mildly swollen Neurologic: Denies headache, focal weakness or sensory changes [] Endocrine: Denies polyuria or polydipsia [] Complete systems were reviewed and found to be within normal limits, except as documented in this note. (MANI CORREA APRN) Allergies Allergies Allergies Coded Allergies Type Severity Reaction Last Updated Verified No Known Drug Allergies 08/09/16 No (TREY ASHBY MD) Physical Exam Physical Exam Constitutional: Well developed, well nourished, no acute distress, non-toxic appearance. [] HENT: Normocephalic, atraumatic, bilateral external ears normal, oropharynx moist, no oral exudates, nose normal. [] Eyes: PERRLA, EOMI, conjunctiva normal, no discharge. [] Neck: Normal range of motion, no tenderness, supple, no stridor. [] Cardiovascular:Heart rate regular rhythm, no murmur [] Lungs & Thorax: Bilateral breath sounds clear to auscultation [] Abdomen: Bowel sounds normal, soft, no tenderness, no masses, no pulsatile masses. [] Skin: lips appear dry and mildly swollen. Back: No tenderness, no CVA tenderness. [] Extremities: No tenderness, no cyanosis, no clubbing, ROM intact, no edema. [] Neurologic: Alert and oriented X 3, normal motor function, normal sensory function, no focal deficits noted. [] Psychologic: Affect normal, judgement normal, mood normal. [] (MANI CORREA APRN) Current Patient Data Vital Signs Vital Signs Date Time Temp Pulse Resp B/P (MAP) Pulse Ox O2 Delivery O2 Flow Rate FiO2 06/17/19 15:14 99.3 71 16 142/82 (102) 97 Room Air 99.3 (TREY ASHBY MD) EKG EKG [] (MANI CORREA APRN) Radiology/Procedures Radiology/Procedures [] (MANI CORREA APRN) Course & Med Decision Making Course & Med Decision Making Pertinent Labs and Imaging studies reviewed. (See chart for details) A medical screening exam was performed on this patient and the patient does not appear to be having a medical emergency. Her symptoms are not of sufficient severity and within reasonable medical probability it is unlikely the absence of immediate medical attention would result in placing the health of the individual (or, with respect to a woman, the health of the woman or her unborn child) in serious jeopardy, serious impairment to bodily functions, or serious dysfunction of any bodily organ or part. If , the patient is not in labor Discussed with patient taking Benadryl for itching and swelling. (MANI CORREA APRN) Dragon Disclaimer Dragon Disclaimer This electronic medical record was generated, in whole or in part, using a voice recognition dictation system. (MANI CORREA APRN) Departure Departure Impression: Primary Impression: Encounter for medical screening examination Additional Impression: Allergic reaction Disposition: HOME, SELF-CARE Condition: STABLE Referrals: NO PCP (PCP) Patient Instructions: Medical Screening Exam Additional Instructions: Thank you for visiting [facility]. We appreciate you trusting us with your care. If any additional problems come up don't hesitate to return to visit us. Please follow up with your primary care provider so they can plan additional care if needed and know about the problem that you had. If symptoms worsen come back to the Emergency Department. Any concerning symptoms that start such as chest pain, shortness of air, weakness or numbness on one side of the body, running high fevers or any other concerning symptoms return to the ER. Problem Qualifiers Additional Impression: Allergic reaction Encounter type: initial encounter Qualified Codes: T78.40XA - Allergy, un specified, initial encounter MANI CORREA APRN Jun 17, 2019 15:36 TREY ASHBY MD Jun 18, 2019 09:32
== END 2019-06-17 15:47 | disposition home or self-care (01) ==
LOC: ER 15:03
DX: T78.40XA Allergy, unspecified, initial encounter (principal)
CPT/HCPCS: 99281

== ENCOUNTER 2021-05-01 12:26 | Emergency (ER) | payer SELFPAY ==
[~2021-05-01] VITALS: Ht 160 cm; Wt 77.0 kg
[2021-05-01 13:39] VITALS: BP 140/85
[2021-05-01] MEDS ORDERED: CEPH500C PO (14:13)
--- NOTE | 2021-05-01 14:14 | PHYS DOC ---
Past Medical History Past Medical History: Constipation, Other Additional Past Medical Histor: "digestive system problems" Past Surgical History: No Surgical History Additional Past Surgical Histo: D&C Smoking Status: Never Smoker Alcohol Use: None Drug Use: None General Adult EDM: Chief Complaint: ABSCESS HPI: HPI: Patient is a 25 year old female who presents with abscess to the pelvic right above the top of the vaginal area and to the left lower pelvic area that are approximately nickel size. They are hard. Patient states been there for about 3 days. She states this is happened before. She states she usually tries not to just shave because this happens. She states that she shaved and they popped it. History of constipation and D&C and abscess. Denies fever, abdominal pain, nausea, vomiting, diarrhea, abnormal vaginal discharge. Review of Systems: Review of Systems: Constitutional: Denies fever or chills. [] Eyes: Denies change in visual acuity. [] HENT: Denies nasal congestion or sore throat. [] Respiratory: Denies cough or shortness of breath. [] Cardiovascular: Denies chest pain or edema. [] GI: Denies abdominal pain, nausea, vomiting, bloody stools or diarrhea. [] : Denies dysuria. [] Musculoskeletal: Denies back pain or joint pain. [] Integument: Denies rash. + Abscess [] Neurologic: Denies headache, focal weakness or sensory changes. [] Endocrine: Denies polyuria or polydipsia. [] Lymphatic: Denies swollen glands. [] Psychiatric: Denies depression or anxiety. [] Heart Score: C/O Chest Pain: No Risk Factors: Risk Factors: DM, Current or recent (<one month) smoker, HTN, HLP, family history of CAD, obesity. Risk Scores: Score 0 - 3: 2.5% MACE over next 6 weeks - Discharge Home Score 4 - 6: 20.3% MACE over next 6 weeks - Admit for Clinical Observation Score 7 - 10: 72.7% MACE over next 6 weeks - Early Invasive Strategies Allergies: Allergies: Allergies Coded Allergies Type Severity Reaction Last Updated Verified No Known Drug Allergies 05/01/21 No Physical Exam: PE: Constitutional: Well developed, well nourished, no acute distress, non-toxic appearance. [] HENT: Normocephalic, atraumatic, bilateral external ears normal, oropharynx moist, no oral exudates, nose normal. [] Eyes: PERRLA, EOMI, conjunctiva normal, no discharge. [] Neck: Normal range of motion, no tenderness, supple, no stridor. [] Cardiovascular:Heart rate regular rhythm, no murmur [] Lungs & Thorax: Bilateral breath sounds clear to auscultation [] Abdomen: Bowel sounds normal, soft, no tenderness, no masses, no pulsatile mas ses. [] Skin: Warm, dry, no erythema, no rash. 2 nickel sized abscesses. 1 abscess to left upper pelvic area and second 1 to mid to lower pelvic area just distal to vagina.[] Back: No tenderness, no CVA tenderness. [] Extremities: No tenderness, no cyanosis, no clubbing, ROM intact, no edema. [] Neurologic: Alert and oriented X 3, normal motor function, normal sensory function, no focal deficits noted. [] Psychologic: Affect normal, judgement normal, mood normal. [] Current Patient Data: Vital Signs: Vital Signs Date Time Temp Pulse Resp B/P (MAP) Pulse Ox O2 Delivery O2 Flow Rate FiO2 05/01/21 13:39 98.1 65 17 140/85 100 Room Air 98.1 EKG: EKG: [] Radiology/Procedures: Radiology/Procedures: [] Course & Med Decision Making: Course & Med Decision Making Pertinent Labs and Imaging studies reviewed. (See chart for details) See HPI. Alert and oriented x4. Ambulatory steady gait. Speaks in full clear sentences. Afebrile. Abscesses are hard and nonfluctuant. No drainage. No signs of abscess. [] Dragon Disclaimer: Aide Disclaimer: This electronic medical record was generated, in whole or in part, using a voice recognition dictation system. Departure Departure Impression: Primary Impression: Abscess Disposition: 01 HOME / SELF CARE / HOMELESS Condition: STABLE Referrals: NO PCP (PCP) Patient Instructions: Abscess, Sitz Bath Additional Instructions: Follow-up with primary care physician. Use sitz baths. If you start having fevers or you start having more redness and swelling or not getting better he can return emergency room. Take medication as prescribed and with food. Use ibuprofen for pain. Scripts Cephalexin (KEFLEX) 500 Mg Capsule 1 CAP PO TID, #30 CAP Prov: BAFPHYLLIS BELTRAN APRN 05/01/21 PHYLLIS RIVERA APRN May 01, 2021 14:13
== END 2021-05-01 14:42 | disposition home or self-care (01) ==
LOC: ER 12:26
DX: N73.9 Female pelvic inflammatory disease, unspecified (principal)
CPT/HCPCS: 99283